=== PATIENT | male | born 1950 | race Caucasian/White ===

== ENCOUNTER 2024-01-31 15:36 | Inpatient (IN) | payer BC, SELFPAY ==
[2024-01-31] VITALS (13 sets, daily range): BP systolic 110–161; BP diastolic 51–92; BMI 31.8; BMI 32.3
--- NOTE | 2024-01-31 09:21 | ED.GENMED ---
History of Present Illness
General
Chief Complaint: Abdominal Symptoms
Time Seen by Provider: 01/31/24 09:14
History of Present Illness
History of Present Illness:
HPI: The patient is a very poor historian therefore I spoke to EMS for history. The patient comes in from a mobile home near [facility]. He was just at [facility] for rehab after admission to [facility]. I then called
the gwkqbkoh-sj-psp eLatha, for history. Son is truck packer. 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 Then at [facility] then to rehab could not keep him there due to insurance - DIL says
'has been throwing up all weekend, extremely stubborn, type I diabetes, was running out of medications and could not tolerate his pills as he would just vomit immediately afterwards'. Urinary incontinence. [facility] [place] [phone] ([facility]
[place]) is 'someone that may help' - I left message.
EXAM:
GENERAL: Appears in no distress but overall appears generally weak and debilitated
HEENT: There is a large ulcerative mass from the angle of the right mandible
CARDIOVASCULAR: Regular rate and rhythm
PULMONARY: No respiratory distress, breathing is nonlabored, equal and clear breath sounds
ABDOMEN: Soft and nontender with no peritoneal signs
NEUROLOGIC: The patient has evidence of dementia, not oriented to month or place, strength is equal in all extremities
EXTREMITIES: Moves all extremities equally, no tenderness, no edema
PYSCHIATRIC: Very limited historian, poor insight and judgment
TIME OF INITIAL ENCOUNTER: 9:20 AM
NUMBER AND COMPLEXITY OF PROBLEMS ADDRESSED AT THE ENCOUNTER
� Chronic conditions affecting care: Stage IV 'cancer of jaw and throat', dementia, diabetes, CAD
� Acute Exacerbation and/or Progression of Chronic Illness: This is an acute problem
� Differential Diagnosis includes: Complication of diabetes, progression of cancer, worsening dementia, dehydration
AMOUNT AND/OR COMPLEXITY OF DATA TO BE REVIEWED AND ANALYZED
� I performed an independent evaluation of and my interpretation is:
EKG: Sinus 106, left bundle branch block, left axis deviation
CT: CT imaging personally reviewed and I agree with radiologist interpretation that he does have very significantly distended stomach with at least questionable gastric outlet obstruction
X-rays: Chest x-ray suggests
Laboratory Studies: White count 21.8, hemoglobin 10.8, sodium 128, renal function normal, alcohol undetected
Other:
� Review of other/old records: No old records here since 2015; I reviewed some notes from [facility] including lab work that shows a normal white count when he was there
� Clinical information was obtained by an independent historian: I spoke to the [id number]-[id number]-nul over the phone�see above
� Prescriptions/Medications Considered but not given:
� Further testing considered but not performed:
RISK OF COMPLICATIONS AND/OR MORBIDITY OR MORTALITY OF PATIENT MANAGEMENT
� Social determinants of health affecting care: Currently staying with apqckuyx-lx-hgb however she cannot care for him at their mobile home
� Discussion with other providers: I spoke to Shea Hanson [phone] at [facility] who states that the patient has not been evaluated at [facility] yet but she is able to try to look at old records and will fax us more information.
Hospitalist for admission at about 11:30 AM.
� Escalation of care including admission/observation vs risk of discharge considered: I spoke to EMS upon arrival. The patient has evidence of dementia is a very limited historian. He thinks he is here 'because I relapsed'. He
has a history of alcoholism. He does not appear intoxicated. CT imaging shows concerns for possible gastric outlet obstruction�will plan NG tube. NG tube was placed and did remove about 2 L.
Past History
Past History
ED Past Medical History: CAD, HTN, Hypercholesterolemia and NIDDM
Social History
Tobacco: Non-smoker
Alcohol: Occasional
Drug: None
Personal: Other (Noncontributory)
Living: with family
Employment: Retired
Family History
Family History: Hypertension
Phy Exam
Physical Exam
Physical Exam:
See HPI
Course
Orders/Labs/Results
Orders:
Orders
01/31/24 09:20
Electrocardiogram (*1) Urgent
Reason for Study: Tachycardia
EKG- Treatment ONCE
01/31/24 09:22
0.9% Sodium Chloride 1000 ml [Nss] 1,000 ml IV BOLUS
01/31/24 09:48
Add On- LAB Urgent
Tests Added?: alcohol
CT Abd/pelvis W Iv Cont Urgent
Comment:
Reason For Exam: jaw malignancy intractable vomiting
01/31/24 09:49
Alcohol Urgent
Complete Blood Count/With Diff Urgent
Comprehensive Metabolic Panel Urgent
Lactic Acid Q4H
Comment: CANCEL 2nd LACTIC ACID IF 1st LACTIC ACID IS LESS THAN 2
Lipase Urgent
Blood Culture Q30M
YENNY Source: Blood/Venous
Specimen Description:
Blood Culture Q30M
YENNY Source: Blood/Venous
Specimen Description:
01/31/24 10:10
Wound/Abscess/Other Culture Urgent
YENNY Source: Face
Specimen Description: Right
Date Specimen was Collected: 01/31/24
Time Specimen was Collected: 10:05
01/31/24 10:16
Case Management Consult ONCE
Case Management Consult: Discharge Planning
01/31/24 10:57
Urinalysis Reflex To Culture Urgent
CR Chest - 2 Views Urgent
Comment:
Reason For Exam: leukocytosis
01/31/24 11:17
Cefepime HCl [Maxipime] 1,000 mg IV NOW STA
01/31/24 11:23
NG Tube [GI tube insertion- Treatment] ONCE
01/31/24 12:00
VANCOMYCIN Pharmacy to Dose [VANCOCIN Pharmacy to Dose] 1 each Pharmacy To Prepare [Call Pharmacy To Prepare] 0 ml IV PER PROTOCOL
01/31/24 13:30
Lactic Acid Q4H
Comment: CANCEL 2nd LACTIC ACID IF 1st LACTIC ACID IS LESS THAN 2
Abnormal Lab Results
01/31/24
09:49
WBC 21.8 H 10^3/uL
(4.8-10.8)
RBC 3.67 L 10^6/uL
(4.70-6.10)
Hgb 10.8 L g/dL
(13.0-18.0)
Hct 31.3 L %
(39.0-52.0)
RDW 15.4 H %
(11.5-14.5)
MPV 10.7 H fL
(7.4-10.4)
Abs Immat Gran (auto) 0.2 H 10^3/uL
(0-0.05)
Absolute Neuts (auto) 16.7 H 10^3/uL
(1.4-6.5)
Absolute Monos (auto) 3.4 H 10^3/uL
(0.1-0.6)
Immature Gran % 1.0 H %
(0-0.5)
Neutrophils % 76.8 H %
(42.2-75.2)
Lymphocytes % 6.6 L %
(20.5-51.1)
Monocytes % 15.4 H %
(1.7-9.3)
Sodium 128 L mmol/L
(135-145)
Chloride 94 L mmol/L
(98-107)
Creatinine 0.6 L mg/dL
(0.7-1.3)
Glucose 151 H mg/dl
(70-99)
Lactic Acid 2.5 H mmol/L
(0.7-2.0)
Total Protein 5.4 L g/dl
(6.3-8.2)
Albumin 3.1 L g/dl
(3.5-5.0)
01/31/24 09:49
01/31/24 09:49
Vital Signs
Initial and Last Documented VS:
Initial Vital Signs
Temp Pulse Resp BP Pulse Ox
99.1 F 108 23 120/65 97
01/31/24 09:20 01/31/24 09:20 01/31/24 09:20 01/31/24 09:20 01/31/24 09:20
Last Documented Vital Signs
Temp Pulse Resp BP Pulse Ox
99.1 F 88 21 142/62 97
01/31/24 09:20 01/31/24 11:00 01/31/24 11:00 01/31/24 11:00 01/31/24 10:15
*Critical Care Note
Total Time (30-74mins, 75-104mins- exclusive of procedures): Not Applicable
ED Attending Note
-
Portions of this chart may have been created with voice recognition software.� Occasional wrong word or��sound alike� substitutions may have occurred due to the inherent limitations of voice recognition software.
Discharge Plan
Departure
Patient Disposition: Admit
Date of Disposition: 01/31/24
Time of Disposition: 11:26
Presentation/result/management discussed w/ accepting MD/DO: Hospitalist
Discharge Problem:
Acute distention of stomach
Prescriptions:
No Action
metformin 500 mg Tablet
1,000 mg PO BID
atorvastatin 80 mg Tablet
80 mg PO QPM
metoprolol succinate 100 mg Tablet Extended Release 24 Hr
100 mg PO DAILY
thiamine HCl (vitamin B1) 100 mg Tablet
100 mg PO DAILY
tamsulosin 0.4 mg Capsule
0.4 mg PO QPM
pantoprazole 40 mg Tablet,Delayed Release (Dr/Ec)
40 mg PO BID
losartan 25 mg Tablet
25 mg PO DAILY
niacin 100 mg Tablet
100 mg PO DAILY
folic acid 1 mg Tablet
1 mg PO DAILY
ondansetron 4 mg Tablet,Disintegrating
4 mg PO Q8H PRN (Reason: nausea/vomiting)
cholecalciferol (vitamin D3) 25 mcg (1,000 unit) Tablet
25 mcg PO DAILY
Januvia 100 mg Tablet
100 mg PO DAILY
Tab-A-Kaya Multivitamin w-iron 15 mg iron- 400 mcg Tablet
1 tab PO DAILY
insulin glargine-yfgn 100 unit/mL Solution
20 unit SC HS
Referrals:
Serena Valenzuela MD [Family Provider] -
Interventions
Interventions:
*Risk Screen - Suicide Last Done: 01/31/24 09:20
*General Assessment Last Done: 01/31/24 09:20
*Neglect/Abuse Screening Last Done: 01/31/24 09:20
HL-Ftupig-Vxzqhbiypq Assessment Last Done: 01/31/24 09:59
Discharge Date and Time
Print Language: BENINESE
[2024-01-31] MEDS: NSS 1000 IV ×2 (09:48→18:22)
[2024-01-31 10:01] LABS: % Basophils 0.2 % (0-2); % Lymphocytes 6.6 % (20.5-51.1); % Monocytes 15.4 % (1.7-9.3); % Neutrophils 76.8 % (42.2-75.2); Absolute Basophils 0.1 10^3/uL (0-0.2); Absolute Immature Granulocytes 0.2 10^3/uL (0-0.05); Absolute Lymphocytes 1.4 10^3/uL (1.2-3.4); Absolute Monocytes 3.4 10^3/uL (0.1-0.6); Absolute Neutrophils 16.7 10^3/uL (1.4-6.5); Hematocrit 31.3 % (39.0-52.0); Hemoglobin 10.8 g/dL (13.0-18.0); Mean Corp Hgb Conc. 34.5 g/dL (33.0-37.0); Mean Corpuscular Hgb 29.4 pg (27.0-31.0); Mean Corpuscular Volume 85.3 fL (80.0-94.0); Mean Platelet Volume 10.7 fL (7.4-10.4); Nucleated Red Blood Cells % 0 % (-); Platelet Count 185 10^3/uL (130-400); Red Blood Cell Count 3.67 10^6/uL (4.70-6.10); Red Cell Dist. Width 15.4 % (11.5-14.5); White Blood Cell Count 21.8 10^3/uL (4.8-10.8)
[2024-01-31 10:11] LABS: Lactic Acid 2.5 mmol/L (0.7-2.0)
[2024-01-31 10:12] LABS: ALT (SGPT) 16 U/L (0-50); AST (SGOT) 27 U/L (17-59); Albumin 3.1 g/dl (3.5-5.0); Alkaline Phosphatase 82 U/L (38-126); Blood Urea Nitrogen 17 mg/dl (9-20); Carbon Dioxide 22 mmol/L (22-30); Chloride 94 mmol/L (98-107); Glucose 151 mg/dl (70-99); Lipase 57 U/L (23-300); Potassium 3.6 mmol/L (3.5-5.1); Sodium 128 mmol/L (135-145); Total Protein 5.4 g/dl (6.3-8.2); eGFR > 60.00
[2024-01-31 10:31] LABS: Alcohol None Detected
--- NOTE | 2024-01-31 11:03 | CM ---
CM was consulted regarding discharge planning. CM spoke with patient's daughter in law who stated that patient was living independently up until recently in [place], [place]. Patient was brought to a local hospital, [facility], after being found in the snow
and was treated for frostbite. He was found to have a head/neck malignancy. Patient was discharged to a [facility]. Patient was then hospitalized again at [facility]. He was then sent to an unknown rehab for two days where his
'insurance ran out'. Patient was discharged home with family over weekend.
Daughter in law reports that patient is currently bedbound and incontinent of urine and stool. Patient is not participating in ADL's. Patient's daughter further reports that patient cannot tolerate PO and has been vomiting his pills.
Daughter in law further reports that they have allowed him to drink beer while he is with them. She reports that he is a chronic alcoholic. She reports he has dementia and a history of PTSD due to his service in the . Patient does have an
appointment at the [facility] this coming Tuesday to plan for treatment of his cancer.
CM advised daughter that placement is complicated by his coming cancer treatment. Daughter understands, but still feels they cannot provide the care that he needs in her home.
ANA updated ED physician. Plan for admission.
[2024-01-31] MEDS: MAXIPIME 1000 MG IV ×2 (11:23→20:45)
--- NOTE | 2024-01-31 14:33 | HPS.HSE ---
Family Physician
-
Family Physician: Serena Valenzuela MD
Chief Complaint
-
intractable vomiting
History of Present Illness
73-year-old male from home with intractable vomiting. Patient reports he has had vomiting since December with weight loss of 28 pounds. He has had a large right wound to his right mandible into his neck for approximately 1 year he states he
thought it would go away. He does not remember his 17-day admission() to [facility] being told he had cancer or his current recent rehab admission. He reports for the past 3 to 4 days he has had intractable vomiting and has
been unable to hold down any of his medications he did have a large bowel movement brown pudding-like on Tuesday 2 days ago. The ER spoke with patient's icfcapwt-lp-esd Leatha who states he has stage IV cancer of the jaw and throat was admitted to
[facility] in [place] and [facility] He was set up with [facility] to begin visits on 01/28/2024. He believes the nurse came out today and called the ambulance. Other past medical history includes stage IV CA
jaw/throat Dx December 2023 [facility] , squamous cell CA scalp and neck, GI bleed, alcohol abuse, chronic ambulatory dysfunction, chronic memory impairment, urinary incontinence, CAD,/[place] cardiac stent 1993, HTN, HLD, DM2, anemia.
Medical History
Past Medical History
Past Medical History: Reports Other
Additional Past Medical History:
stage IV CA jaw/throat had biopsy on 01/06/2024 [facility]
Squamous cell CA scalp and neck
GI bleed
Alcohol abuse
Chronic memory impairment per patient
urinary incontinence,
CAD
HTN
HLD
DM2
anemia
Chronic memory impairment per patient
Chronic ambulatory dysfunction
Past Surgical History: Reports Other
Additional Past Surgical History:
Tonsillectomy
Cardiac stent x 1 [facility] 1993
Biopsy right jaw neck wound January 06, 2024 [facility]
Social History
Tobacco: Non-smoker
Alcohol: Daily (2-3 beers last drink 4 days ago prior 8 beers a day December 2023)
Drug: None
Personal: Single
Living: Alone
Employment: Retired
Family History
Family History: Other (Mother CVA father [place])
Allergies / Home Medications
Allergies reflects when Allergies were last updated in [employer].
Home Medications with original date entered in [employer]
Allergy/Medication List:
Allergies
Allergy/AdvReac Type Severity Reaction Status Date / Time
gallopamil Allergy Unknown Unknown Verified 01/31/24 09:29
lisinopril Allergy Unknown Unknown Verified 01/31/24 09:29
Home Medications
atorvastatin 80 mg tablet 80 mg PO QPM High Cholesterol 01/31/24
cholecalciferol (vitamin D3) 25 mcg (1,000 unit) tablet 25 mcg PO DAILY Supplement 01/31/24
folic acid 1 mg tablet 1 mg PO DAILY Supplement 01/31/24
insulin glargine-yfgn 100 unit/mL subcutaneous solution 20 unit SC HS Diabetes 01/31/24
losartan 25 mg tablet 25 mg PO DAILY Blood Pressure 01/31/24
metformin 500 mg tablet 1,000 mg PO BID Diabetes 01/31/24
metoprolol succinate 100 mg tablet,extended release 24 hr 100 mg PO DAILY Blood Pressure 01/31/24
multivitamin-iron sulfate 15 mg-folic acid 400 mcg tablet (Tab-A-Kaya Multivitamin w-iron) 1 tab PO DAILY Supplement 01/31/24
niacin 100 mg tablet 100 mg PO DAILY Supplement 01/31/24
ondansetron 4 mg disintegrating tablet 4 mg PO Q8H PRN nausea/vomiting 01/31/24
pantoprazole 40 mg tablet,delayed release 40 mg PO BID Gastrointestinal Issue 01/31/24
sitagliptin phosphate 100 mg tablet (Januvia) 100 mg PO DAILY Diabetes 01/31/24
tamsulosin 0.4 mg capsule 0.4 mg PO QPM Urinary Issue 01/31/24
thiamine HCl (vitamin B1) 100 mg tablet 100 mg PO DAILY Supplement 01/31/24
Review of Systems
-
History Source: Patient and Other (Per ER record from [id number])
Constitutional: Reports Weight Loss (28 pounds 1 month); Denies Fever
EENT: Reports Other (Large open ulcerated wound to right mandible into right neck x 1 year per patient); Denies Sore Throat or Runny Nose
Respiratory: Denies Cough or Trouble Breathing
Cardiac: Denies Chest Pain, Diaphoresis, Palpitations or Syncope
Abdomen/GI: Reports Nausea and Vomiting; Denies Abdominal Pain, Diarrhea, Constipated, Bloody Stools or Black Stools
: Reports Incontinence (Chronic urinary); Denies Dysuria, Frequency, Flank Pain or Difficulty Voiding
Musculoskeletal: Denies Joint Pain or Edema
Skin: Denies Itching or Rash
Neurological: Denies Dizzy, Headache or Weakness
Endocrine: Reports No Symptoms
Hematologic/Lymphatic: Reports No Symptoms
Psych: Reports Calm
Physical Exam
Vital Signs
Vital Signs
Temp Pulse Resp BP Pulse Ox
99.1 F 100 22 125/63 95
01/31/24 09:20 01/31/24 13:00 01/31/24 13:00 01/31/24 13:00 01/31/24 12:15
Physical Exam
General: Comfortable, Conversant, Obese and Other (Poor memory recall oriented to name and place only does not recall 19-day admission and rehab visit); No Fever or Chills
HEENT: NormoCephalic, Anicteric, PERRLA, No Ptosis and Other (Large open wound entire right mandible extending into neck)
Respiratory: Clear; No Wheezes, Rales or Rhonchi
Cardiac: S1/S2 and Tachycardia; No Murmur, Rub, Gallop or Peripheral Edema
Breast: Deferred by me
GI: Soft, Non Tender, Non Distended, Normal Bowel Sounds, No Hepatosplenomegaly and Other (NG tube draining dark green bile)
Rectal: Deferred by Provider
Genito-urinary: Deferred by me
Musculoskeletal: No Clubbing, No Cyanosis and No Edema
Skin: Warm and Dry; No Rash
Neuro: Awake, Alert and Oriented (To name, current place but not any recent events or past medical history); No Slurred Speech, Facial Droop or Tremors
Psych: Calm
Laboratory Results
-
01/31/24 09:49
01/31/24 09:49
Laboratory Results
Lactic Acid 2.5 mmol/L (0.7-2.0) H 01/31/24 09:49
Total Bilirubin 1.0 mg/dl (0.2-1.3) 01/31/24 09:49
AST 27 U/L (17-59) 01/31/24 09:49
ALT 16 U/L (0-50) 01/31/24 09:49
Alkaline Phosphatase 82 U/L (38-126) 01/31/24 09:49
Lipase 57 U/L (23-300) 01/31/24 09:49
Data Reviewed
-
CT Scan: Report Reviewed by me
Lab Data: Labs Reviewed by me
Impression/Plan
-
Impression/plan:
Admit to telemetry
#Sepsis secondary to left lower lobe PNA concern for aspiration pneumonia given vomiting
WBC 21.8(was 7.7 on 01/12/2024), 99 1, HR 100, 125/63
-Blood cultures x 2, check UA ADOPTION MANAGER
-IV cefepime, IV Flagyl, IV vancomycin
-Consult ID
-Check Pro-Sandip, follow CBC, CMP
-PT/OT/case management eval
CXR: Tree-in-bud nodules in the left lung base
CT abdomen pelvis with IV contrast:
1. Mild infectious tree-in-bud nodules in the lingula and left lower lobe
2. Moderate fluid distention of the stomach may be related to gastroparesis or gastric outlet obstruction
EKG sinus tach 106 bpm, LBBB, QTc 536 MS
#Intractable vomiting likely secondary to sepsis versus gastroparesis/gastric outlet obstruction
-N.p.o.
-NG tube
-IV NSS 60 cc an hour
-IV PPI
-IV Zofran as needed
-Consult GI
#Stage IV CA jaw/throat ?
#Hx squamous cell CA scalp/neck
Had biopsy on 01/06/2024 at [facility] will get records for surgical pathology
[facility]-contact number Margarita Pfeiffer [phone]
-Obtain old records from [facility] including surgical path/consults/admission note
-Consult Oncology
#Alcohol abuse
Drinks 2-3 beers a day last drink 4 days ago(01/28/24) prior 8 beers daily until December 2023
MSAs screen with protocol
IV thiamine, IV folate
#Hyponatremia hypovolemic
NA 128 follow bmp
#Chronic memory impairment per patient
#Chronic ambulatory dysfunction
PT/OT/case management eval
#Normocytic anemia
Hgb 10.8, MCV 85.3
Hold folic acid
#DM2
Accu-Cheks with SSI, check HgbA1c
-Hold Januvia, metformin at 1000 g twice daily, insulin glargine 20 units at bedtime due to current vomiting
#GERD
#Hx GI bleed
-IV PPI 40 mg daily, [facility] 40 mg p.o. twice daily
#HTN benign
Hold metoprolol succinate 100 mg daily
IV Lopressor 5 mg every 6 hours as needed SBP>110
-Hold losartan
#CAD/cardiac stent x 1 [facility] 1993
Hold losartan/p.o. beta-monica/statin
#Chronic urinary incontinence
-Continue Flomax 0.4 mg every afternoon
#Obesity due to excess calorie consumption�BMI 31.8 kg
Due to current likely stage IV head and neck cancer weight loss at current time not recommended
DVT prophylaxis
Subcu Lovenox
DNR per patient
Wwxoqckk-wu-hym Leatha [phone] contact
[2024-01-31] MEDS: VANCOCIN 540 MG IV (14:59)
--- NOTE | 2024-01-31 15:39 | W.PN.UPDATE ---
Addendum entered and electronically signed by Peggy Olmstead MD 01/31/24 15:51:
Continue Lantus as 5 units at bedtime, instead of 10 units as stated below
Original Note:
Update Note
Progress Note Update
I saw and examined the patient.
The OVERLOCK COLLAR SETTER's note was reviewed and I agree with the note.
Comment:
HPI: 73-year-old male with PMH stage IV jaw cancer, squamous cell cancer of the scalp and neck, GI bleed, alcohol abuse, chronic ambulatory dysfunction, chronic memory impairment, urinary incontinence, CAD/PA with cardiac stent 1993, HTN, HLD, DM2,
anemia; p/w nausea and intractable vomiting.
He was recently admitted to [facility] in Dec which he has no recollection of.
ER physician spoke with patient's itluyjck-og-jwu Leatha who stated that pt has stage IV cancer of the jaw and throat and [facility] [place] [facility]
He was set up with [facility] care, whom likely called the ambulance today.
CXR: Tree-in-bud nodules in the left lung base
CT abdomen pelvis with IV contrast:
1. Mild infectious tree-in-bud nodules in the lingula and left lower lobe
2. Moderate fluid distention of the stomach may be related to gastroparesis or gastric outlet obstruction
A/P:
# Likely Sepsis POA secondary to left lower lobe PNA, concern for aspiration pneumonia given vomiting
WBC 21.8 on admission (was 7.7 on 01/12/2024)
Follow Blood cultures x 2,
Check Pro-Sandip
check UA although less likely
Cont IV cefepime, vancomycin and add Flagyl
Consult ID
# Intractable vomiting likely secondary to gastroparesis/gastric outlet obstruction
NG tube placed in the ED
Cont NPO with IVF support
IV PPI
IV Zofran as needed
Consult GI
# Stage IV R jaw cancer
# Hx squamous cell CA scalp/neck
Had biopsy on 01/06/2024 at [facility], will get records for surgical pathology
[facility]-contact number Margarita Pfeiffer [phone]
Obtain old records from [facility] including surgical path/consults/admission note
Consult Oncology
# Alcohol abuse
Drinks 2-3 beers a day, last drink 4 days [employer] (01/28/24)
Cont MSAS protocol
IV thiamine, IV folate
# Hyponatremia hypovolemic
Follow sodium level with IVF
# Chronic memory impairment
# Chronic ambulatory dysfunction
PT/OT eval
# Normocytic anemia
Hgb 10.8, MCV 85.3
# DM2
SSI
check HgbA1c
Hold Januvia, metformin at 1000 mg twice daily,
Cont half dose [employer] insulin glargine at 10 units HS ([employer]IE[employer] at 20 units HS)
# GERD
# Hx GI bleed
IV PPI 40 mg daily, [employer] 40 mg p.o. twice daily
# HTN benign
Hold metoprolol succinate 100 mg daily
IV Lopressor 5 mg every 6 hours as needed SBP >110
Hold losartan
# CAD/cardiac stent x 1 [facility] 1993
Hold losartan/p.o. beta-monica/statin
# Chronic urinary incontinence
Continue Flomax 0.4 mg every afternoon
DVT prophylaxis: Subcu Lovenox
[2024-01-31 15:40] LABS: Lactic Acid 1.1 mmol/L (0.7-2.0)
[2024-01-31] MEDS: PROTONIX IV 40 MG IV (15:56)
--- NOTE | 2024-01-31 16:13 | CON.GI ---
Addendum entered and electronically signed by Debi Bucio MD 01/31/24 18:11:
I saw and examined the patient.
The STONE CRUSHER OPERATOR or PA's note was reviewed and I agree with the note.
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
Patient poor historian (told me he does not have appt at [place]; told me he did have EGD may years ago).
Will need eventual EGD once Na improved to over 130 and once output from NGT decreases and improves from PNA standpoint (concern about aspiration PNA which may explain leukocytosis - ID has been consulted).
r/a/b reviewed with pt of EGD inc but not limited to bleeding, infection, perforation.
Recommend intermittent suction of NGT.
Question prognosis with current malignancy and goals of care, onc has been consulted.
Original Note:
Consultation
-
Date/Time Consultation Requested: 01/31/24 1530
Date/Time Consultation Performed: 01/31/24 1615
Requesting Provider: ANDRES Bullock
Performing Provider: ANDRES Henderson, Niurka Bucio MD
Reason for Consultation: gastric distention
Medical History
Chief Complaint / HPI
Chief Complaint: nausea/vomiting
History of Present Illness:
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 He now presents with nausea/vomiting over weekend with
intolerance of medications. On admission CT A/p with Moderate fluid distention of the stomach, which may be related to gastroparesis or gastric outlet obstruction. Some apparent narrowing at the level of the gastric outlet, although could be
related to peristalsis and considered nonspecific by CT. Also noted mild infectious vs inflammatory nodule in lungs. Labs notable for WBC 21,800, Na 128. In ER NGT was placed with 3200ml removal on placement of brownish fluid.
Pt poor historian per admitting hospitalist team pt had hx left sided squamous cell CA of neck and scalp then recent biopsy right side ulcerated lesion and due follow up this week at [facility] to review for treatment. Pt denies difficulty with
swallowing but admits to intractable nausea/vomiting non bloody emesis last few days and possible intermittent since . He has also had 28 lbs wt loss. Pt also admits to to diarrhea but non specific amount but denies abdominal pain, blood or
black in stools. Hx colonoscopy years ago with hx polyps. Did not recall EGD.
Past Medical History
Past Medical History: CAD, Cancer (squamous cell CA left sided right sided ulcerated mass with biopsy 01/07/24 ), HTN, Hypercholesterolemia, NIDDM and Other (anemia, GI bleed, syncope, ? dementia, pulm nodule, athrosclerosis, LBBB, prior tobacco use,
dysphagia, salivary gland abscess, BPH, urinary retention )
Social History
Tobacco: Non-Smoker
Alcohol: Daily (8 beers per day then cut back til 4 days ago)
Drug: None
Living: With Family
Employment: Retired
Family History
Family History: Other (denies family hx colon CA or polyps)
Allergies / Home Medications
Allergy/AdvReac Type Severity Reaction Status Date / Time
gallopamil Allergy Unknown Unknown Verified 01/31/24 09:29
lisinopril Allergy Unknown Unknown Verified 01/31/24 09:29
�Medication �Instructions �Recorded
atorvastatin 80 mg tablet 80 mg PO QPM High Cholesterol 01/31/24
cholecalciferol (vitamin D3) 25 25 mcg PO DAILY Supplement 01/31/24
mcg (1,000 unit) tablet
folic acid 1 mg tablet 1 mg PO DAILY Supplement 01/31/24
insulin glargine-yfgn 100 unit/mL 20 unit SC HS Diabetes 01/31/24
subcutaneous solution
losartan 25 mg tablet 25 mg PO DAILY Blood Pressure 01/31/24
metformin 500 mg tablet 1,000 mg PO BID Diabetes 01/31/24
metoprolol succinate 100 mg 100 mg PO DAILY Blood Pressure 01/31/24
tablet,extended release 24 hr
multivitamin-iron sulfate 15 1 tab PO DAILY Supplement 01/31/24
mg-folic acid 400 mcg tablet
(Tab-A-Kaya Multivitamin w-iron)
niacin 100 mg tablet 100 mg PO DAILY Supplement 01/31/24
ondansetron 4 mg disintegrating 4 mg PO Q8H PRN nausea/vomiting 01/31/24
tablet
pantoprazole 40 mg tablet,delayed 40 mg PO BID Gastrointestinal Issue 01/31/24
release
sitagliptin phosphate 100 mg 100 mg PO DAILY Diabetes 01/31/24
tablet (Januvia)
tamsulosin 0.4 mg capsule 0.4 mg PO QPM Urinary Issue 01/31/24
thiamine HCl (vitamin B1) 100 mg 100 mg PO DAILY Supplement 01/31/24
tablet
Review of Systems
-
History Source: Patient
Constitutional: Reports Weight Loss
EENT: Reports No Symptoms
Respiratory: Reports No Symptoms
Cardiac: Reports No Symptoms
Abdomen/GI: Reports Nausea, Vomiting and Diarrhea
: Reports No Symptoms
Musculoskeletal: Reports No Symptoms
Skin: Reports Other (left facial ulcerated area )
Neurological: Reports Weakness
Endocrine: Reports No Symptoms
Hematologic/Lymphatic: Reports No Symptoms
Vital Signs
Temp Pulse Resp BP Pulse Ox
99.1 F 96 22 146/57 96
01/31/24 09:20 01/31/24 14:30 01/31/24 14:30 01/31/24 14:00 01/31/24 14:30
Physical Exam
Exam
General: Well Developed, Well Nourished and No Apparent Distress
HEENT: Normocephalic and Other (large ulcerated lesion left side of neck)
Respiratory: Clear
Cardiac: Regular Rhythm
GI: Soft, Non Tender, Non Distended and Other (NGT with brownish drainage )
Genito-urinary: No Costovertebral Tender
Musculoskeletal: No Clubbing and No Cyanosis
Skin: Warm
Neuro: Awake, Alert and Other (forgetful)
Psych: Calm
Results
WBC 21.8 10^3/uL (4.8-10.8) H 01/31/24 09:49
Hgb 10.8 g/dL (13.0-18.0) L 01/31/24 09:49
Hct 31.3 % (39.0-52.0) L 01/31/24 09:49
MCV 85.3 fL (80.0-94.0) 01/31/24 09:49
Plt Count 185 10^3/uL (130-400) 01/31/24 09:49
Absolute Neuts (auto) 16.7 10^3/uL (1.4-6.5) H 01/31/24 09:49
Sodium 128 mmol/L (135-145) L 01/31/24 09:49
Potassium 3.6 mmol/L (3.5-5.1) 01/31/24 09:49
Chloride 94 mmol/L (98-107) L 01/31/24 09:49
Carbon Dioxide 22 mmol/L (22-30) 01/31/24 09:49
BUN 17 mg/dl (9-20) 01/31/24 09:49
Creatinine 0.6 mg/dL (0.7-1.3) L 01/31/24 09:49
Calcium 9.0 mg/dl (8.4-10.2) 01/31/24 09:49
Total Bilirubin 1.0 mg/dl (0.2-1.3) 01/31/24 09:49
AST 27 U/L (17-59) 01/31/24 09:49
ALT 16 U/L (0-50) 01/31/24 09:49
Alkaline Phosphatase 82 U/L (38-126) 01/31/24 09:49
Lipase 57 U/L (23-300) 01/31/24 09:49
Diagnostic Image Results:
01/30 CT a/p with IV contrast
1. Moderate fluid distention of the stomach, which may be related to gastroparesis or gastric outlet obstruction. Some apparent narrowing at the level of the gastric outlet, although could be related to peristalsis and considered nonspecific by CT.
If persistent clinical concern, a follow-up endoscopy or a nonemergent upper gastrointestinal fluoroscopic evaluation could be performed.
2. Mild infectious or inflammatory tree-in-bud nodules in the lingula and left lower lobe.
Prior GI Procedures:
EGD: none
Colonoscopy: ? at [facility] years ago
Assessment / Plan
-
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 He now presents with
nausea/vomiting over weekend with intolerance of medications. On admission CT A/p with Moderate fluid distention of the stomach, which may be related to gastroparesis or gastric outlet obstruction. Some apparent narrowing at the level of the
gastric outlet, although could be related to peristalsis and considered nonspecific by CT. Also noted mild infectious vs inflammatory nodule in lungs. Labs notable for WBC 21,800, Na 128. In ER NGT was placed with 3200ml removal on placement of
brownish fluid. pt also with 28 lbs wt loss and diarrhea. Hx colonoscopy years ago with hx polyps. Did not recall EGD. Some limited hx poor historian in exam.
-nausea/vomiting with concern for gastric outlet obstruction on imaging
-hx squamous cell CA left neck and recent bx right neck ulcerated lesion with concern for Jaw/throat CA
-hyponatremia
-leukocytosis
-elevated lactate now improved
-hx ETOH use
other medical problems:
-CAD
-HTN
-hypercholesterolemia
-NIDDM
-LBBB
-BPH
-cognitive impairment
PLAN:
etiology of nausea/vomiting with concern for gastric outlet obstruction vs other
cont NGT for decompression
correct Na
trend WBC's
will review with Dr. Bucio for EGD
requested again record from [facility] as only labs sent
per medical team due this week for follow up at [place] for evaluation
-
-
Thank you for consultation and allowing me to participate in the patient's care. Please call the superintendent concrete mixing plant GI physician during the after hours with any questions or concerns.
--- NOTE | 2024-01-31 17:41 | PTCARENOTE ---
Patient admitted from the ER into room 405-02. Vital signs stable. NGT intact. Connected to low intermittent suction. Educated patient on NPO status. Patient verbalizes understanding. Reviewed use of call caldera, bed and television remote usage.
Patient verbalizes understanding of teaching.
--- NOTE | 2024-01-31 18:11 | W.PN.UPDATE ---
Update Note
Progress Note Update
billing purposes
[2024-01-31] MEDS: THIAMINE INJECTION 200 MG IV ×2 (18:26→23:34)
[2024-01-31] MEDS: FLAGYL 500 MG 100 IV (18:26)
[2024-01-31 18:31] LABS: INR 1.18; PT 14.9 Sec (11.4-14.6)
[2024-01-31 18:32] LABS: APTT 27.5 Sec (23.4-35.0)
[2024-01-31 18:35] LABS: GGTP 18 U/L (15-73); Magnesium 1.5 mg/dl (1.6-2.3); Phosphorus 3.2 mg/dl (2.5-4.5)
[2024-01-31 18:42] LABS: B-Hydroxybutyrate 2.61 mmol/L (0.02-0.27)
[2024-01-31 18:56] LABS: Procalcitonin 0.13 ng/ml (0.0-0.25)
[2024-01-31] MEDS: HEPARIN 5000 UNITS SC (20:44)
[2024-01-31] MEDS: NSS (PRESERVATIVE FREE) IV (20:45)
--- NOTE | 2024-01-31 20:50 | PHA.VAN.IN ---
Assessment
- Assessment
Renal Function: Appears similar to baseline
Concomitant Antimicrobials: FLAGYL, CEFEPIME
- Previous Dosing Experience
Previous Regimen: NONE
AUC Dosing Plan
- Dosing Variables
Dosing Weight (kg): 100.7
Dosing CrCl (ml/min): 100
Vd coefficient (L/kg): 0.6
- Empiric Dosing
Initial / Loading Dose: 2GM
Maintenance Regimen: 1250MG IV Q12H
Estimated AUC (mcg*h/mL): 505
Estimated Peak (mcg*h/mL): 31.8
Estimated Trough (mcg/ml): 12.7
Estimated Half Life (H): 31.8
Pharmacokinetics Vancomycin I
- -
Patient Age: 73
Patient Sex: Male
Vancomycin Day #: 1
Indication: Pulmonary/Respiratory (SEPSIS)
Requesting Provider: QIAN
Height / Weight:
Height 5 ft 9.5 in
Actual Weight 100.698 kg
Pertinent Past Medical History: STAGE IV CA - SCALP/NECK
- Vital Signs / Lab Results
Temp Pulse Resp BP Pulse Ox
98.1 F 92 16 161/79 98
01/31/24 19:44 01/31/24 19:44 01/31/24 19:44 01/31/24 19:44 01/31/24 19:44
Lab Results - Hematology
01/31/24
09:49
WBC 21.8 H
Lab Results - Chemistry
01/31/24
09:49
BUN 17
Creatinine 0.6 L
Albumin 3.1 L
01/31/24 01/31/24
09:49 14:31
Lactic Acid 2.5 H 1.1
Microbiology Results
01/31/24 10:10 Gram Stain - Preliminary
Face - Right
[2024-01-31 21:15] LABS: Glucose - Point of Care 122 mg/dl (70-99)
[2024-01-31] MEDS: LANTUS 0.0500000000000000028 UNITS SC (21:52)
[2024-01-31 21:54] LABS: Urine Albumin Trace (Neg - Trace); Urine Bilirubin 1+ (Negative); Urine Character Clear (Clear); Urine Color Yellow; Urine Glucose Negative (Negative); Urine Ketone 3+ (Negative); Urine Leukocyte Negative (Negative); Urine Nitrite Negative (Negative); Urine Occult Blood Negative (Negative); Urine Urobilinogen Negative (Neg - 1+); Urine pH 6.5 (5.0-9.0)
[2024-01-31 22:02] LABS: Amphetamines Negative (Negative); Barbiturates Negative (Negative); Benzodiazepines Negative (Negative); Buprenorphine Negative (Negative)
[2024-01-31 22:03] LABS: Cocaine Negative (Negative); Marijuana Negative (Negative); Methadone Negative (Negative); Methamphetamines Negative (Negative); Opiates Negative (Negative); Phencyclidine Negative (Negative); Tricyclic Antidepressants Negative (Negative)
[2024-01-31] MEDS: ZOFRAN 4 MG IV (22:30)
[2024-01-31] MEDS: LOPRESSOR 5 MG IV (23:33)
[2024-02-01] VITALS (7 sets, daily range): BP systolic 113–169; BP diastolic 54–83; PULSE 83; O2SAT 96; BMI 32.3; BMI 43.3
[2024-02-01] MEDS: FLAGYL 500 MG 100 IV ×2 (01:37→09:07)
[2024-02-01 03:16] LABS: Glucose - Point of Care 142 mg/dl (70-99)
[2024-02-01] MEDS: MAXIPIME 1000 MG IV (03:42)
[2024-02-01] MEDS: LOPRESSOR 5 MG IV (05:46)
[2024-02-01] MEDS: VANCOCIN 275 MG IV (05:46)
[2024-02-01 06:02] LABS: % Basophils 0.4 % (0-2); % Eosinophils 1.1 % (0-6); % Immature Granulocytes 1.4 % (0-0.5); % Lymphocytes 11.2 % (20.5-51.1); % Monocytes 17.9 % (1.7-9.3); Absolute Basophils 0.1 10^3/uL (0-0.2); Absolute Eosinophils 0.1 10^3/uL (0-0.7); Absolute Immature Granulocytes 0.2 10^3/uL (0-0.05); Absolute Lymphocytes 1.5 10^3/uL (1.2-3.4); Absolute Monocytes 2.3 10^3/uL (0.1-0.6); Absolute Neutrophils 8.8 10^3/uL (1.4-6.5); Hematocrit 29.4 % (39.0-52.0); Hemoglobin 9.7 g/dL (13.0-18.0); Mean Corpuscular Hgb 29.5 pg (27.0-31.0); Mean Corpuscular Volume 89.4 fL (80.0-94.0); Mean Platelet Volume 11.2 fL (7.4-10.4); Nucleated Red Blood Cells % 0 % (-); Platelet Count 160 10^3/uL (130-400); Red Blood Cell Count 3.29 10^6/uL (4.70-6.10); Red Cell Dist. Width 15.6 % (11.5-14.5); White Blood Cell Count 12.9 10^3/uL (4.8-10.8)
[2024-02-01 06:26] LABS: ALT (SGPT) 12 U/L (0-50); AST (SGOT) 18 U/L (17-59); Albumin 2.5 g/dl (3.5-5.0); Alkaline Phosphatase 77 U/L (38-126); Blood Urea Nitrogen 12 mg/dl (9-20); Calcium 8.7 mg/dl (8.4-10.2); Carbon Dioxide 27 mmol/L (22-30); Chloride 96 mmol/L (98-107); Estimated Creatinine Clearance > 125 ml/min; Glucose 131 mg/dl (70-99); Potassium 3.1 mmol/L (3.5-5.1); Sodium 132 mmol/L (135-145); Total Bilirubin 0.5 mg/dl (0.2-1.3); Total Protein 4.6 g/dl (6.3-8.2); eGFR > 60.00
--- NOTE | 2024-02-01 08:29 | CON.ONC ---
Addendum entered and electronically signed by Barry Knott MD 02/01/24 08:55:
Regarding brain MRI, I did not order as I not sure patient will be compliant per my conversation with LEONID Zhang.
There is a potential high risk for alcohol withdrawal. For now that see with the other specialist believe and how he does with fluids and correction of hyponatremia.
Eventually MRI brain should be part of his staging evaluation particularly if his intractable vomiting is not improved.
Overall prognosis guarded as patient is somewhat against receiving medical care, has limited social support network, and we have limited data his previous workup done at other institutions.
Original Note:
Impression
Impression
Unattended St IV H&N Ca -large right mandibular mass that was ignored > 1-year
Intractable nausea and vomiting
Dementia? per DIL
Plan
Plan
CT scan ABD relatively unremarkable. With intracable vomiting he could have EMPLOYMENT SUPERVISOR mets so will get inpt MRI brain.
Patient will need thorough outpatient evaluation including imaging (staging) and radiation. Obtain path from biopsies already done.
Will need to get records from [facility] as apparently he ready had a diagnosis of stage IV head neck cancer already made.
Call to LEONID Zhang (listed as Emerg contact). She does not drive and her (patients son) works as a truck shop supervisor and is only off on Mondays.
Will need case management evaluation and outpatient evaluation with coordination of care assuming patient will be agreeable to chemoTx and radiation.
Patient History
History of Present Illness
CC: Vomiting
HPI:
73-year-old male lives in a mobile home presents with intractable vomiting. Patient reports he has had vomiting since December with weight loss of 28 pounds. He has had a large right mandible ulcerated cancer into his neck for approximately 1 year
he states he thought it would go away. He does not remember his 17-day admission() to [facility] being told he had cancer or his current recent rehab admission. He reports for the past 3 to 4 days he has had intractable
vomiting and has been unable to hold down any of his medications. Patient's [id number] eLatha ([phone]) who states he has stage IV cancer of the jaw and throat was admitted to [facility] in [place] and [facility].
He was set up with [facility] care to begin visits on 01/28/2024. He was scheduled to see the [facility] on Monday 01/29 but canceled the appointment.
Past-Medical/Surgical History
PMH: stage IV CA jaw/throat Dx December 2023 [facility] , squamous cell CA scalp and neck, GI bleed, alcohol abuse, chronic ambulatory dysfunction, chronic memory impairment, urinary incontinence, CAD,/NM cardiac stent 1993, HTN, HLD, DM2,
anemia.
SH:
chronic ETOH beer
Prior smoker
Patient Medication
�Medication �Instructions �Recorded �Confirmed �Last Taken �Type
atorvastatin 80 mg tablet 80 mg PO QPM High Cholesterol 01/31/24 01/31/24 Unknown History
cholecalciferol (vitamin D3) 25 25 mcg PO DAILY Supplement 01/31/24 01/31/24 Unknown History
mcg (1,000 unit) tablet
folic acid 1 mg tablet 1 mg PO DAILY Supplement 01/31/24 01/31/24 Unknown History
insulin glargine-yfgn 100 unit/mL 20 unit SC HS Diabetes 01/31/24 01/31/24 Unknown History
subcutaneous solution
losartan 25 mg tablet 25 mg PO DAILY Blood Pressure 01/31/24 01/31/24 Unknown History
metformin 500 mg tablet 1,000 mg PO BID Diabetes 01/31/24 01/31/24 Unknown History
metoprolol succinate 100 mg 100 mg PO DAILY Blood Pressure 01/31/24 01/31/24 Unknown History
tablet,extended release 24 hr
multivitamin-iron sulfate 15 1 tab PO DAILY Supplement 01/31/24 01/31/24 Unknown History
mg-folic acid 400 mcg tablet
(Tab-A-Kaya Multivitamin w-iron)
niacin 100 mg tablet 100 mg PO DAILY Supplement 01/31/24 01/31/24 Unknown History
ondansetron 4 mg disintegrating 4 mg PO Q8H PRN nausea/vomiting 01/31/24 01/31/24 Unknown History
tablet
pantoprazole 40 mg tablet,delayed 40 mg PO BID Gastrointestinal Issue 01/31/24 01/31/24 Unknown History
release
sitagliptin phosphate 100 mg 100 mg PO DAILY Diabetes 01/31/24 01/31/24 Unknown History
tablet (Januvia)
tamsulosin 0.4 mg capsule 0.4 mg PO QPM Urinary Issue 01/31/24 01/31/24 Unknown History
thiamine HCl (vitamin B1) 100 mg 100 mg PO DAILY Supplement 01/31/24 01/31/24 Unknown History
tablet
Active Medications
Generic Name Dose Route Start Last Admin
Trade Name Freq PRN Reason Stop Dose Admin
Cefepime HCl 1,000 mg 01/31/24 20:00 02/01/24 03:42
Cefepime Hcl 1,000 Mg/11.3 Ml Vial IV 1,000 mg
Q8H STEVE Administration
Folic Acid 1 mg 02/01/24 08:00
Folic Acid 1 Mg Tablet PO 02/29/24 07:59
DAILY STEVE
Heparin Sodium 5,000 units 01/31/24 20:00 01/31/24 20:44
Heparin 5,000 Units/Ml 1 Ml Vial SC 02/28/24 19:59 5,000 units
Q12 STEVE Administration
Sodium Chloride 1,000 mls @ 60 mls/hr 01/31/24 15:15 01/31/24 18:22
Nss IV 1,000 mls
.[id number] STEVE Administration
Metronidazole 100 mls @ 100 mls/hr 01/31/24 18:00 02/01/24 01:37
Flagyl 500 Mg IV 100 mls
Q8H STEVE Administration
Folic Acid 1 mg/ Sodium 50.2 mls @ 200.8 mls/hr 01/31/24 17:17
Chloride IV 02/28/24 17:16
DAILYPRN PRN
if NPO
Insulin Glargine 5 units/ 0.05 mls @ 0 mls/hr 01/31/24 22:00 01/31/24 21:52
Device SC 02/28/24 21:59 0.05 mls
HS STEVE Administration
As Directed
Vancomycin HCl 1,250 mg/ 275 mls @ 183.33 mls/hr 02/01/24 06:00 02/01/24 05:46
Sodium Chloride IV 275 mls
Q12H STEVE Administration
Lorazepam 1 mg 01/31/24 17:17
Lorazepam 1 Mg Tablet PO 02/28/24 17:16
Q2HPRN PRN
MSAS 5-7
Lorazepam 1 mg 01/31/24 17:17
Lorazepam 2 Mg/Ml Vial IV 02/28/24 17:16
Q1HPRN PRN
MSAS 8-11
Lorazepam 2 mg 01/31/24 17:17
Lorazepam 2 Mg/Ml Vial IV 02/28/24 17:16
Q1HPRN PRN
MSAS > 11
Metoprolol Tartrate 5 mg 02/01/24 00:00 02/01/24 05:46
Metoprolol 5 Mg/5 Ml Vial IV 02/29/24 00:00 5 mg
Q6 STEVE Administration
Ondansetron HCl 4 mg 01/31/24 17:17 01/31/24 22:30
Ondansetron 4 Mg/2 Ml Vial IV 02/28/24 17:16 4 mg
Q6HPRN PRN Administration
nausea and vomiting
Pantoprazole Sodium 40 mg 02/01/24 08:00
Pantoprazole Sodium 40 Mg/10 Ml Vial IV 02/29/24 07:59
DAILY STEVE
Sodium Chloride 0 ml 01/31/24 17:17
Sodium Chloride 0.9% (Preservative Free) 10 Ml Vial IV 02/28/24 17:16
PRN PRN
To dilute IV Ativan
Protocol
Sodium Chloride 0 flush 01/31/24 19:00
Sodium Chloride 0.9% (Flush) Syringe IV 02/28/24 18:59
PER PROTOCOL STEVE
Thiamine HCl 200 mg 01/31/24 17:17 01/31/24 23:34
Thiamine (100 Mg/Ml) 2 Ml Vial IV 02/03/24 08:01 200 mg
Q8 STEVE Administration
Thiamine HCl 100 mg 02/03/24 20:00
Thiamine 100 Mg Tablet PO 03/02/24 19:59
BID STEVE
Physical Exam
-
General: No Apparent Distress
HEENT: Other (There is a large ulcerative mass from the angle of the right mandible ~ 10 cm)
Cardiology: S1 and S2
Pulmonary: Clear
GI: Soft
Extremities: No C/C/E
Psych: Calm; Negative Intact Judgement/Insight (Very limited historian, poor insight and judgment)
Labs
Lab Results
WBC 12.9 10^3/uL (4.8-10.8) H 02/01/24 05:16
RBC 3.29 10^6/uL (4.70-6.10) L 02/01/24 05:16
Hgb 9.7 g/dL (13.0-18.0) L 02/01/24 05:16
Hct 29.4 % (39.0-52.0) L 02/01/24 05:16
MCV 89.4 fL (80.0-94.0) 02/01/24 05:16
MCH 29.5 pg (27.0-31.0) 02/01/24 05:16
MCHC 33.0 g/dL (33.0-37.0) 02/01/24 05:16
RDW 15.6 % (11.5-14.5) H 02/01/24 05:16
Plt Count 160 10^3/uL (130-400) 02/01/24 05:16
MPV 11.2 fL (7.4-10.4) H 02/01/24 05:16
Abs Immat Gran (auto) 0.2 10^3/uL (0-0.05) H 02/01/24 05:16
Absolute Neuts (auto) 8.8 10^3/uL (1.4-6.5) H 02/01/24 05:16
Absolute Lymphs (auto) 1.5 10^3/uL (1.2-3.4) 02/01/24 05:16
Absolute Monos (auto) 2.3 10^3/uL (0.1-0.6) H 02/01/24 05:16
Absolute Eos (auto) 0.1 10^3/uL (0-0.7) 02/01/24 05:16
Absolute Basos (auto) 0.1 10^3/uL (0-0.2) 02/01/24 05:16
Immature Gran % 1.4 % (0-0.5) H 02/01/24 05:16
Neutrophils % 68.0 % (42.2-75.2) 02/01/24 05:16
Lymphocytes % 11.2 % (20.5-51.1) L 02/01/24 05:16
Monocytes % 17.9 % (1.7-9.3) H 02/01/24 05:16
Eosinophils % 1.1 % (0-6) 02/01/24 05:16
Basophils % 0.4 % (0-2) 02/01/24 05:16
Creatinine 0.5 mg/dL (0.7-1.3) L 02/01/24 05:16
Vital Signs
Vital Signs
Temp Pulse Resp BP Pulse Ox
97.7 F 84 20 151/69 98
02/01/24 07:18 02/01/24 07:18 02/01/24 07:18 02/01/24 05:46 02/01/24 07:18
--- NOTE | 2024-02-01 08:57 | PHA.VAN.FU ---
Vancomycin Assessment / Plan
- Assessment
Renal Function: Stable
WBC's are: Trending Down
In the past 24 hrs, patient has been: Afebrile
Concomitant Antimicrobials: cefepime, metronidazole
- Dosing Plan
Adjust Regimen to: Vanc 1500mg Q12H starting at 1800
New Regimen Predicts: AUC (500), Peak (34), Trough (11)
- Monitoring Plan
No level(s) ordered at this time: consider levels in next few days
MRSA Screen: Ordered per protocol
- Follow Up
Pharmacy will continue to follow.
Vancomycin Follow UP
- -
Patient Age: 73
Patient Sex: Male
Vancomycin Day #: 2
Indication: Pulmonary/Respiratory
Requesting Provider: Dilcia Schmidt
Pertinent Antimicrobial Allergies:
no pertinent antibiotic allergies
Height / Weight:
Height 5 ft 9.5 in
Actual Weight 100.471 kg
Pertinent Past Medical History: Stage IV head & neck cancer
- Vital Signs / Lab Results
Temp Pulse Resp BP Pulse Ox
97.7 F 84 20 151/69 98
02/01/24 07:18 02/01/24 07:18 02/01/24 07:18 02/01/24 05:46 02/01/24 07:18
Lab Results - Hematology
01/31/24 02/01/24
09:49 05:16
WBC 21.8 H 12.9 H
Lab Results - Chemistry
01/31/24 02/01/24
09:49 05:16
BUN 17 12
Creatinine 0.6 L 0.5 L
Estimated Creat Clear > 125
Albumin 3.1 L 2.5 L
01/31/24 01/31/24
09:49 14:31
Lactic Acid 2.5 H 1.1
Lab Results - Urine
01/31/24 01/31/24
21:36 21:37
Urine Nitrite Cancelled
Urine Nitrite (Reflex) Negative
Ur Leukocyte Esterase Cancelled
Leukocyte Esterase Rfl Negative
Microbiology Results
01/31/24 10:10 Gram Stain - Preliminary
Face - Right
[2024-02-01] MEDS: NSS 1000 IV ×2 (09:02→23:51)
[2024-02-01] MEDS: PROTONIX IV 40 MG IV (09:03)
[2024-02-01] MEDS: THIAMINE INJECTION 200 MG IV ×3 (09:03→23:44)
[2024-02-01] MEDS: NSS (PRESERVATIVE FREE) 10 ML IV (09:03)
[2024-02-01] MEDS: HEPARIN 5000 UNITS SC ×2 (09:04→20:50)
[2024-02-01] MEDS: FOLVITE PO (09:08)
--- NOTE | 2024-02-01 09:18 | W.PN.HOSP.TC ---
Today's Communication/Plan
-
see A/P
Assessment / Plan
Assessment / Plan
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
anemia; p/w nausea and intractable vomiting.
He was recently admitted to [facility] in Dec which he has no recollection of.
ER physician spoke with patient's [id number] Leatha who stated that pt has stage IV cancer of the jaw and throat and was [facility] [place] and DC'd to [facility].
He was set up with [facility] care, whom likely called the ambulance today.
CXR: Tree-in-bud nodules in the left lung base
CT abdomen pelvis with IV contrast:
1. Mild infectious tree-in-bud nodules in the lingula and left lower lobe
2. Moderate fluid distention of the stomach may be related to gastroparesis or gastric outlet obstruction
A/P:
# Aspiration Pneumonitis; aspiration pneumonia ruled out by ID
WBC 21.8 on admission -> 12.9 today (was 7.7 on 01/12/2024)
Blood cultures neg, Procal 0.13, UA not indicative for UTI
Off Abx per ID
# Intractable vomiting likely secondary to gastroparesis/gastric outlet obstruction
NG tube placed in the ED
Cont NPO with IVF support
IV PPI
IV Zofran as needed
GI on board, plan for EGD
# non-sustained VT noted on tele, asymptomatic, ?related to hypoK and hypoMag
# CAD/cardiac stent x 1 [facility] 1993
check formal EKG
Check echo
Trend trop
Card on board
Resume TV PRODUCTION ASSISTANT statin,
resume TV PRODUCTION ASSISTANT losartan/Toprol at decreased doses when able to take PO
Replete lytes
# Hypokalemia
# Hypomagnesemia
replete lytes
# stage IV H&N cancer- large right mandibular mass that was ignored > 1-year
# Hx squamous cell CA scalp/neck
Had biopsy on 01/06/2024 at [facility], will get records for surgical pathology
Oncology on board, recc outpt chemoTx and radiation if plan for aggressive approach
However, currently pt preferring hospice care after GOC discussion
will consult hospice
# Alcohol abuse
Drinks 2-3 beers a day, last drink 4 days TV PRODUCTION ASSISTANT (01/28/24)
Cont MSAS protocol
IV thiamine, IV folate
# Hypovolemic Hyponatremia
sodium level improved with IVF
# Chronic memory impairment
# Chronic ambulatory dysfunction
PT/OT eval
# Normocytic anemia
Hgb 10.8, MCV 85.3
# DM2
SSI
check HgbA1c
Hold Januvia, metformin at 1000 mg twice daily,
Cont reduced TV PRODUCTION ASSISTANT insulin glargine at 5 units HS (TV PRODUCTION ASSISTANT at 20 units HS)
# GERD
# Hx GI bleed
IV PPI 40 mg daily, TV PRODUCTION ASSISTANT 40 mg p.o. twice daily
# HTN benign
resume TV PRODUCTION ASSISTANT losartan/Toprol at decreased doses when able to take PO
IV Lopressor 5 mg every 6 hours as needed SBP >110
# Chronic urinary incontinence
Continue Flomax 0.4 mg every afternoon
DVT prophylaxis: Subcu Lovenox
DNR
GOC discussion with pt and separately with DIL. Current plan is to proceed with hospice.
Extensive discussion with all consultants
total time spent > 51 min
Anticipated Discharge: > 48 hours
Subjective/Interval History
-
Date of Service: February 01, 2024
Objective Data
-
Labs:
Laboratory Results
02/01/24
05:16
WBC 12.9 H
Hgb 9.7 L
Hct 29.4 L
Plt Count 160
Sodium 132 L
Potassium 3.1 L
Chloride 96 L
Carbon Dioxide 27
BUN 12
Creatinine 0.5 L
Glucose 131 H
Calcium 8.7
Total Bilirubin 0.5
AST 18
ALT 12
Alkaline Phosphatase 77
Vital Signs:
Vital Signs
Temp Pulse Resp BP Pulse Ox
36.5 C 84 20 151/69 98
02/01/24 07:18 02/01/24 07:18 02/01/24 07:18 02/01/24 05:46 02/01/24 07:18
I&O
01/31/24 02/01/24 02/02/24
06:59 06:59 06:59
Intake Total 495 / 495
Output Total 3650 / 3650
Balance -3155 / -3155
Review of Systems
-
All other systems: Reviewed and negative
Physical Exam
-
General: Well Developed, Well Nourished, No Apparent Distress, Comfortable and Conversant; Negative Respiratory Distress
HEENT: Normocephalic, Atraumatic, Nose Appears Normal and Ears Appear Normal; Negative Oxygen
Respiratory: Clear to Auscultation and Non Labored Respirations; Negative Accessory Resp Muscle Use
Cardiac: Regular Rhythm and S1/S2
GI: Soft, Nontender, Nondistended and Normal Bowel Sounds
Skin: Warm, Dry and Other (massive R neck cancer )
Neuro: Awake and Alert
Psych: Calm and Intact Judgement/Insight (somewhat)
Data Reviewed
-
CT Scan: Report Reviewed by me
Labs: Labs Reviewed by me
--- NOTE | 2024-02-01 09:29 | WOUNDNOTE ---
R JAW/NECK (with photo flash)
--- NOTE | 2024-02-01 09:30 | WOUNDNOTE ---
[facility] RN note: Patient admitted with sepsis, pneumonia. Patient's son does his wound care at home as per patient. Patient current with Chuy MARQUES.
See H&P for complete history.
PMH: stage 4 jaw and throat cancer with cancer wound for about 1 year. Was recently at [facility] 12/27-01/12/24 then discharged to [facility] then home with Chuy RN starting 01/27. Squamous cell cancer scalp and neck. ETOH
abuse, chronic ambulation dysfunction, chronic memory impairment, urinary incontinence, CAD, [place], cardiac stent 1993, HTN, DM, anemia.
Wound Location and type/assessment: Patient admitted with: full thickness cancer wound to muscle, dark pink with scattered yellow tissue along with scattered purple areas. Moderate ss drainage. No odor. +Local erythema. Patient denies pain. Skin on
sacrum intact. Heels blanchable mild red and intact. Oncology, ID and GI on consult.
Appetite: currently NPO. NGT capped currently.
Pressure redistribution devices in place: [employer] Accumax. Patient transferred from chair to bed with walker and supervision.
Plan: R jaw dressing changed. Heels off bed with pillow. Air chair cushion given.
Will confirm orders with hospitalist and update nurse.
Updated care plan and will follow as needed.
[2024-02-01] MEDS: KCL 270 MEQ IV (10:00)
[2024-02-01] MEDS: COZAAR PO (10:01)
[2024-02-01] MEDS: MAGNESIUM SULFATE 50 IV (10:01)
--- NOTE | 2024-02-01 10:37 | CON.CAR ---
Addendum entered and electronically signed by Arturo Ko MD 02/01/24 12:04:
I saw and examined the patient.
The DATA OFFICER's note was reviewed and I agree with the note.
Comment: 73 y/o male with stage IV cancer jaw and throat per chart, DM2, CAD with history of remote stenting (1993 per chart), hypertension, anemia, daily ETOH, memory impairment, GIB, and hyperlipidemia who had NSVT noted on telemetry. He is here
vomiting and ?PNA being treated with NGT and NPO. He is a poor historian. On exam, large exophytic mass on the right jaw line. RRR no m/r/g his lungs were CTA anteriorly (I couldn't reposition) no le edema. Alot of his medical history remains
unknown. WCT seen and c/w NSVT. He has electrolyte imbalance which may explain the finding. He is being repleted. Will update Echo. LBBB noted unclear chronicity, may be some underlying CMY. Will add a small dose of IV bb and monitor response. He
is not a an aspirin despite report of CAD but also may be an GIB/anemia issue. Will hold for now.
d/w Dr Olmstead.
Original Note:
Consultation
Consultation Request
Date/Time Consultation Requested: 02/01/24 0921
Date/Time Consultation Performed: 02/01/24 1020
Requesting Provider: Dr. Olmstead
Performing Provider: Gertrude CAMPOS for Dr. Ko
Reason for Consultation: NSVT
Medical History
-
Chief Complaint: vomiting
History of Present Illness:
73 y/o male with stage IV cancer jaw and throat per chart, DM2, CAD with history of remote stenting (1993 per chart), hypertension, anemia, daily ETOH, memory impairment, GIB, and hyperlipidemia who is here for vomiting. He is admitted and felt to
have aspiration PNA. He is a poor historian and history obtained from chart. He is being treated with ABX. He is NPO and NGT is in place. He is being treated with Abx. We are consulted since when he worked with PT today, he was seen to have run of
WCT on the monitor. He also was orthostatic. He is getting fluids. Electrolytes are also being replaced. He denies any CP or palps. He has a cough. Of note, he was recently hospitalized at an OSH, then sent to rehab, but details of these stays are
unknown.
Past Medical History
Past Medical History: CAD, Cancer, HTN, Hypercholesterolemia, NIDDM and Other (as above)
Social History
Tobacco: Non-Smoker
Alcohol: Daily (3-4 beers per day, non recently per patient)
Family History
Family History: Reviewed & Not Pertinent
Allergies / Home Medications
Allergy/AdvReac Type Severity Reaction Status Date / Time
gallopamil Allergy Unknown Unknown Verified 01/31/24 09:29
lisinopril Allergy Unknown Unknown Verified 01/31/24 09:29
�Medication �Instructions �Recorded �Confirmed �Type
atorvastatin 80 mg tablet 80 mg PO QPM High Cholesterol 01/31/24 01/31/24 History
cholecalciferol (vitamin D3) 25 25 mcg PO DAILY Supplement 01/31/24 01/31/24 History
mcg (1,000 unit) tablet
folic acid 1 mg tablet 1 mg PO DAILY Supplement 01/31/24 01/31/24 History
insulin glargine-yfgn 100 unit/mL 20 unit SC HS Diabetes 01/31/24 01/31/24 History
subcutaneous solution
losartan 25 mg tablet 25 mg PO DAILY Blood Pressure 01/31/24 01/31/24 History
metformin 500 mg tablet 1,000 mg PO BID Diabetes 01/31/24 01/31/24 History
metoprolol succinate 100 mg 100 mg PO DAILY Blood Pressure 01/31/24 01/31/24 History
tablet,extended release 24 hr
multivitamin-iron sulfate 15 1 tab PO DAILY Supplement 01/31/24 01/31/24 History
mg-folic acid 400 mcg tablet
(Tab-A-Kaya Multivitamin w-iron)
niacin 100 mg tablet 100 mg PO DAILY Supplement 01/31/24 01/31/24 History
ondansetron 4 mg disintegrating 4 mg PO Q8H PRN nausea/vomiting 01/31/24 01/31/24 History
tablet
pantoprazole 40 mg tablet,delayed 40 mg PO BID Gastrointestinal Issue 01/31/24 01/31/24 History
release
sitagliptin phosphate 100 mg 100 mg PO DAILY Diabetes 01/31/24 01/31/24 History
tablet (Januvia)
tamsulosin 0.4 mg capsule 0.4 mg PO QPM Urinary Issue 01/31/24 01/31/24 History
thiamine HCl (vitamin B1) 100 mg 100 mg PO DAILY Supplement 01/31/24 01/31/24 History
tablet
Review of Systems
-
Unable to obtain full review of systems at this time due to: Other (patient is poor historian)
History Source: Patient and Other (chart)
All other systems: Negative unless noted
Respiratory: Cough
Abdomen/GI: Vomiting
Neurological: Other (light-headed with walking)
Physical Exam
Vital Signs
Temp Pulse Resp BP Pulse Ox
97.7 F 84 20 151/69 98
02/01/24 07:18 02/01/24 07:18 02/01/24 07:18 02/01/24 05:46 02/01/24 07:18
Lab Results
02/01/24 05:16
02/01/24 05:16
Physical Exam
General: No Apparent Distress
HEENT: Normocephalic and Anicteric
Respiratory: Other (diminished to b/l bases)
Cardiac: Regular Rhythm
Musculoskeletal: No Edema
Skin: Warm, Dry and Other (wound to right side of face, packed)
Neuro: Awake, Alert, Oriented (self only) and Other (follows commands)
Psych: Calm
Impression / Plan
-
PNA, suspected aspiration:
-on ABX
-infectious disease is consulted
Vomiting:
-gastric outlet obstruction versus gastroparesis
-GI following- considering EGD at some point after some improvement medically
-NGT to intermittent suction
NSVT:
-has LBBB
-patient with short runs NSVT
-replace potassium and magnesium
-check echo
-add back low dose metoprolol IV for now since NPO
Stage IV jaw/throat cancer:
-oncology following
Orthostasis:
-SBP 150's down to 120's
-getting IVF, working with PT
-monitor
Hx CAD:
-details unknown
-no CP
-if does have stent history as stated in chart, should be on ASA if no contraindication, but not enough known about history at the time of my assessment
HTN:
-normally on losartan and metoprolol
-currently NPO
-some orthostasis as above
-add low dose metoprolol (IV) and monitor
Data Reviewed
-
EKG: Tracing Personally Visualized and interpreted (SR with PVC's, 81 BPM)
CT Scan: Report Reviewed by me (abdomen/pelvis CT: Moderate fluid distention of the stomach, which may be related to gastroparesis or gastric outlet obstruction. Mild infectious or inflammatory tree-in-bud nodules in the lingula and left lower lobe.)
Labs: Labs Reviewed by me
[2024-02-01 10:56] LABS: Troponin I 0.024 ng/ml
[2024-02-01 11:05] LABS: Magnesium 1.5 mg/dl (1.6-2.3)
--- NOTE | 2024-02-01 11:21 | CON.ID ---
Consultation
-
Date/Time Consultation Requested: 01/31/24 15:30
Date/Time Consultation Performed: 02/01/24 11:21
Requesting Provider: Dr Olmstead
Performing Provider: Dr Lawrence
Reason for Consultation: sepsis 12/02 pna concern aspiration
Chief Complaint / Past History
Chief Complaint
intractable vomiting
History of Present Illness
Mr Perez is a 73 year old male with history of stage IV CA jaw/throat cancer had biopsy on 01/06/2024 [facility], SCC of scalp/neck, history of EtOH abuse. Also 28 lb weight loss. discharged to rehab. Reports a chronic wound over the
right mandible for 1 year. Then over the last 3-4 days developed intractable vomiting. Last BM was Tuesday 4 days ago; described as pudding consistency. Of note he did not recall being told he had cancer.
Since arrival here he has been afebrile, bp stable to hypertensive, wbc initially 21 now 12.9, hgb 9.7, plt 160, L shift was present on arrival now resolved, eos initially not present now resolved, cr 0.5, lactic acid 1.1, t bili 0.5, ast 18, alt
18, alk phos 77, procal 0.13, UA neg, CXR today: Tree-in-bud nodules in the left lung base on the prior CT are less conspicuous by radiograph, CT a/p with IV contrast: gastroparesis or gastric outlet obstruction, Mild infectious or inflammatory
tree-in-bud nodules in the lingula and left lower lobe. Seen by Dr Knott Oncology and GI re possible gastric outlet obsruction vs gastroparesis.
Past History
Additional Past Medical History:
stage IV CA jaw/throat had biopsy on 01/06/2024 [facility]
Squamous cell CA scalp and neck
GI bleed
Alcohol abuse
Chronic memory impairment per patient
urinary incontinence,
CAD
HTN
HLD
DM2
anemia
Chronic memory impairment per patient
Chronic ambulatory dysfunction
Additional Past Surgical History:
Tonsillectomy
Cardiac stent x 1 [facility] 1993
Biopsy right jaw neck wound January 06, 2024 [facility]
Allergy History:
gallopamil Allergy (Unknown, Verified 01/31/24 09:29)
Unknown
lisinopril Allergy (Unknown, Verified 01/31/24 09:29)
Unknown
Medications Reviewed: Yes
Social History
Tobacco: Non-Smoker
Alcohol: Daily (last drink 4 days ago, 8 beers a day)
Drug: None
Family History
Family History: Not Pertinent
Review of Systems
Review of Systems
General: Negative Fever or Chills
All systems: All other systems were reviewed and were negative
Vital Signs
Temp Pulse Resp BP Pulse Ox
97.7 F 84 20 151/69 98
02/01/24 07:18 02/01/24 07:18 02/01/24 07:18 02/01/24 05:46 02/01/24 07:18
Physical Exam
Physical Exam
Constitutional: No Acute Distress and Chronically Ill
Head: Other (large ulcer about the size of a grapefruit, some clear liqiuid drainage, foul smell, no visible bone)
Cardiovascular: Regular Rate and S1/S2; Negative Murmur or Rub
Pulmonary: Clear and Symmetric; Negative Wheezes, Rales or Rhonchi
Gastrointestinal: Soft, Non Tender, Non Distended and Normal Bowel Sounds
Skin: Warm and Dry; Negative Rash or Jaundice
Lab / Diagnostic Study Results
02/01/24 05:16
02/01/24 05:16
Abs Immat Gran (auto) 0.2 10^3/uL (0-0.05) H 02/01/24 05:16
Absolute Neuts (auto) 8.8 10^3/uL (1.4-6.5) H 02/01/24 05:16
Absolute Lymphs (auto) 1.5 10^3/uL (1.2-3.4) 02/01/24 05:16
Absolute Monos (auto) 2.3 10^3/uL (0.1-0.6) H 02/01/24 05:16
Absolute Basos (auto) 0.1 10^3/uL (0-0.2) 02/01/24 05:16
Immature Gran % 1.4 % (0-0.5) H 02/01/24 05:16
Neutrophils % 68.0 % (42.2-75.2) 02/01/24 05:16
Lymphocytes % 11.2 % (20.5-51.1) L 02/01/24 05:16
Monocytes % 17.9 % (1.7-9.3) H 02/01/24 05:16
Eosinophils % 1.1 % (0-6) 02/01/24 05:16
Basophils % 0.4 % (0-2) 02/01/24 05:16
PT 14.9 Sec (11.4-14.6) H 01/31/24 18:15
INR 1.18 01/31/24 18:15
Lactic Acid 1.1 mmol/L (0.7-2.0) 01/31/24 14:31
Procalcitonin 0.13 ng/ml (0.0-0.25) 01/31/24 18:15
Microbiology Results
Micro:
01/31/24 10:10 Wound Culture - Preliminary
Face - Right Gram Stain - Preliminary
01/31/24 09:49 Blood Culture - Preliminary
Blood/Venous No Growth in 24 hours- Final report to follow
01/31/24 09:49 Blood Culture - Preliminary
Blood/Venous No Growth in 24 hours- Final report to follow
02/01/24 09:06 Nasal Screen MRSA (PCR) - Pending
Nose
Assessment / Plan
Mild Aspiration Pneumonitis
- CXR already improving with minimal findings, leukocytosis markedly improved and likely reactive, on room air, procalcitonin negative
- pneumonia takes days to develop, unlikely to have pneumonia at this time, most likely aspiration pneumonitis. most patients with aspiration pneumonitis do not require antibiotic therapy - stopped antibiotics
- follow clinically
Stage IV Head and Neck Cancer
Chronic EtOH Abuse - ongoing
Dementia with secondary noncompliance
- no probe to bone in the wound
- hospice a real consideration, particularly if patient generally resistant to health care
--- NOTE | 2024-02-01 11:36 | CM ---
CM reviewed pt with Dr Olmstead and Dr Knott- no set dc at this time
Lengthy dc planning discussion with LEONID
Pt was living alone in mobile home in [place]- LEONID notes he was unsafe due to cognition
Was sent to [facility] from [facility] from 01/12-01/26- dc to son and DIL's home with [facility]
GOC discussed in detailed along with ST rehab placement vs LT SNF placement vs home with VN vs home with hospice
LEONID notes she does not work due to disability and is home during the day and able to care for pt as needed
Notes pt likely is over-resourced for [place] and will not pay for any care or LT SNF out of pocket
Family would like pt to come home with continued service through [facility] so patient can start his outpt cancer testing and treatments soon
Family does not want to delay treatment for rehab placement
Pt's only DME is [facility] at home, will likely need WW on dc
Referral back to [facility] requested for community home assistance and services
[facility] info also provided to LEONID for HCBS
LEONID notes PCP is in [place] and difficult to get to
Resident clinic info provided to LEONID
Per [facility] request, referral to Palliative as plan DIE CUTTER OPERATOR was to establish palliative care for pt
Updates to attending, GI, and onc
Physicians will continue to address medical tx plan and GOC
Discharge Disposition- SNF refusal, home with [facility] and palliative care, likely need new WW
--- NOTE | 2024-02-01 11:39 | W.PN.GI.CBS2 ---
Addendum entered and electronically signed by Debi Bucio MD 02/01/24 18:05:
I saw and examined the patient.
The MONEY MANAGER or PA's note was reviewed and I agree with the note.
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
Appreciate hospitalist assistance pt now hospice.
Donan fixed NGT and more output as below.
Plan for EGD tomorrow with Dr. Pritchard with possible enteral stent - r/a/b explained to pt including not limited to bleeding, peforation, infection.
Donna called family to update them as well.
D/w hospitalist and Dr. Pritchard.
Addendum entered and electronically signed by ANDRES Lovett 02/01/24 17:13:
NGT with minimal drainage over course of day. Tube was replaced last PM. Tube removed and replaced to 55 cm with several 100ml drainage on replacement. Pt feeling improved.
Original Note:
Today's Communication / Plan
-
etiology of nausea/vomiting with concern for gastric outlet obstruction vs other -- in setting of stage IV CA
cont NGT for decompression with less drainage overnight
Na and WBC's improved
discussed with Dr. Olmstead-- she will reach out to family later today to review overall plan to decide on EGD for tomorrow
appreciate oncology input
cards following with NSVT
requested again record from [facility] as only labs sent-- no further records to review
cont NPO monitor outputs
Assessment / Plan
-
Pt is a 73yo with hx CAD, HTN, hypercholesterolemia, NIDDM with recent admission to [facility] followed by [facility] for stage IV CA of Jaw and throat and recent right neck biospy. He now presents with
nausea/vomiting over weekend with intolerance of medications. On admission CT A/p with Moderate fluid distention of the stomach, which may be related to gastroparesis or gastric outlet obstruction. Some apparent narrowing at the level of the
gastric outlet, although could be related to peristalsis and considered nonspecific by CT. Also noted mild infectious vs inflammatory nodule in lungs. Labs notable for WBC 21,800, Na 128. In ER NGT was placed with 3200ml removal on placement of
brownish fluid. pt also with 28 lbs wt loss and diarrhea. Hx colonoscopy years ago with hx polyps. Did not recall EGD. Some limited hx poor historian in exam.
-nausea/vomiting with concern for gastric outlet obstruction on imaging
-concern for aspiration on admission
-NSVT
-hx squamous cell CA left neck and recent bx right neck ulcerated lesion with concern for mandible mass
-hyponatremia
-leukocytosis
-elevated lactate now improved
-hx ETOH use
other medical problems:
-CAD
-HTN
-hypercholesterolemia
-NIDDM
-LBBB
-BPH
-cognitive impairment
PLAN:
etiology of nausea/vomiting with concern for gastric outlet obstruction vs other -- in setting of stage IV CA
cont NGT for decompression with less drainage overnight
Na and WBC's improved
discussed with Dr. Olmstead-- she will reach out to family later today to review overall plan to decide on EGD for tomorrow
appreciate oncology input
cards following with NSVT
requested again record from [facility] as only labs sent-- no further records to review
cont NPO monitor outputs
Subjective
Subjective
Date of Service: February 01, 2024
NPO, NGT in place, 150ml out from NGT overnight
Objective
Data Reviewed
Laboratory Data:
Laboratory Results
02/01/24 05:16
02/01/24 05:16
Laboratory Results
PT 14.9 Sec (11.4-14.6) H 01/31/24 18:15
INR 1.18 01/31/24 18:15
APTT 27.5 Sec (23.4-35.0) 01/31/24 18:15
Phosphorus 3.2 mg/dl (2.5-4.5) 01/31/24 18:15
Magnesium 1.5 mg/dl (1.6-2.3) L 02/01/24 05:16
Total Bilirubin 0.5 mg/dl (0.2-1.3) 02/01/24 05:16
AST 18 U/L (17-59) 02/01/24 05:16
ALT 12 U/L (0-50) 02/01/24 05:16
Alkaline Phosphatase 77 U/L (38-126) 02/01/24 05:16
Lipase 57 U/L (23-300) 01/31/24 09:49
Vital Signs and I&O:
Vital Signs
Temp Pulse Resp BP Pulse Ox
97.7 F 84 20 151/69 98
02/01/24 07:18 02/01/24 07:18 02/01/24 07:18 02/01/24 05:46 02/01/24 07:18
I&O
01/31/24 02/01/24 02/02/24
06:59 06:59 06:59
Intake Total 495 / 495
Output Total 3800 / 3800
Balance -3305 / -3305
Physical Exam
Physical Exam
HEENT: Anicteric and Moist mucous membranes
Cardiology: Normal Sinus Rhythm
Pulmonary: Other (decreased bases )
GI: Soft, Non Distended, Non Tender and Other (NGT with clear drainage )
Extremities: No Edema and Other (left neck large ulcerated wound)
Neuro: Other (sleepy but arousable )
[2024-02-01 11:47] LABS: Glucose - Point of Care 117 mg/dl (70-99)
[2024-02-01] MEDS: LOPRESSOR 2.5 MG IV ×3 (13:02→23:43)
--- NOTE | 2024-02-01 15:29 | CM ---
CM reviewed chart and pt with numerous physicians
Physicians addressing GOC and pt requesting hospice
Lengthy dc planning discussion with LEONID
Pt was living alone in mobile home in [place]- numerous hospitalizations and rehabs at [facility] and recently [facility]
Was sent to [facility] SNF from [facility] from 01/12-01/26- dc to son and DIL's home with Chuy
DIL notes as she is disabled at home and unable to care for pt around the clock, pt will need to go to a SNF if he desires hospice
He is only able to return to their home if pt is stronger and able to participate in his care
DIL requesting GIP admission if possible
If not, requesting cost effective SNF be arranged- notes concern that pt will refuse associated costs
Requested referrals to [facility] and [facility]
Bedside meeting with pt to confirm hospice as plan
He is concerned about associated costs
Broad net of SNF referrals made via [facility] and all pending
Referral made to Hospice for GIP assessment
Discharge Disposition- SNF with hospice
[2024-02-01 16:01] LABS: Troponin I 0.021 ng/ml
[2024-02-01] MEDS: LIPITOR PO (16:20)
--- NOTE | 2024-02-01 17:26 | W.PN.UPDATE ---
Update Note
Progress Note Update
spoke with son and updated on plan for EGD in am with possible stent.
[2024-02-01 18:04] LABS: Glucose - Point of Care 124 mg/dl (70-99)
--- NOTE | 2024-02-01 18:05 | W.PN.UPDATE ---
Update Note
Progress Note Update
billing purposes
[2024-02-01 21:12] LABS: Glucose - Point of Care 114 mg/dl (70-99)
[2024-02-01] MEDS: LANTUS SC (21:53)
[2024-02-01 22:17] LABS: Troponin I 0.022 ng/ml
[2024-02-02] VITALS (13 sets, daily range): BP systolic 18–168; BP diastolic 71–90; BMI 32.3
[2024-02-02 04:22] LABS: % Basophils 0.4 % (0-2); % Eosinophils 2.2 % (0-6); % Immature Granulocytes 3.4 % (0-0.5); % Lymphocytes 18.9 % (20.5-51.1); % Monocytes 17.2 % (1.7-9.3); % Neutrophils 57.9 % (42.2-75.2); Absolute Eosinophils 0.2 10^3/uL (0-0.7); Absolute Immature Granulocytes 0.3 10^3/uL (0-0.05); Absolute Lymphocytes 1.5 10^3/uL (1.2-3.4); Absolute Monocytes 1.4 10^3/uL (0.1-0.6); Absolute Neutrophils 4.6 10^3/uL (1.4-6.5); Hematocrit 29.4 % (39.0-52.0); Hemoglobin 9.8 g/dL (13.0-18.0); Mean Corp Hgb Conc. 33.3 g/dL (33.0-37.0); Mean Corpuscular Hgb 29.1 pg (27.0-31.0); Mean Corpuscular Volume 87.2 fL (80.0-94.0); Mean Platelet Volume 10.5 fL (7.4-10.4); Nucleated Red Blood Cells % 0 % (-); Platelet Count 167 10^3/uL (130-400); Red Blood Cell Count 3.37 10^6/uL (4.70-6.10); Red Cell Dist. Width 15.7 % (11.5-14.5)
[2024-02-02 04:42] LABS: Glucose - Point of Care 111 mg/dl (70-99)
[2024-02-02 04:43] LABS: Troponin I 0.032 ng/ml
[2024-02-02 04:48] LABS: ALT (SGPT) 11 U/L (0-50); AST (SGOT) 18 U/L (17-59); Albumin 2.4 g/dl (3.5-5.0); Alkaline Phosphatase 70 U/L (38-126); Blood Urea Nitrogen 8 mg/dl (9-20); Calcium 8.7 mg/dl (8.4-10.2); Carbon Dioxide 24 mmol/L (22-30); Chloride 100 mmol/L (98-107); Estimated Creatinine Clearance > 125 ml/min; Glucose 107 mg/dl (70-99); Sodium 134 mmol/L (135-145); Total Bilirubin 0.5 mg/dl (0.2-1.3); Total Protein 4.5 g/dl (6.3-8.2); eGFR > 60.00
[2024-02-02] MEDS: LOPRESSOR 2.5 MG IV ×3 (05:13→19:58)
[2024-02-02 07:55] LABS: Hematocrit 28.9 % (39.0-52.0); Hemoglobin 9.3 g/dL (13.0-18.0); Mean Corp Hgb Conc. 32.2 g/dL (33.0-37.0); Mean Corpuscular Hgb 29.1 pg (27.0-31.0); Mean Corpuscular Volume 90.3 fL (80.0-94.0); Mean Platelet Volume 10.8 fL (7.4-10.4); Platelet Count 154 10^3/uL (130-400); Red Cell Dist. Width 15.6 % (11.5-14.5); White Blood Cell Count 7.3 10^3/uL (4.8-10.8)
[2024-02-02 08:28] LABS: Blood Urea Nitrogen 7 mg/dl (9-20); Calcium 8.7 mg/dl (8.4-10.2); Carbon Dioxide 26 mmol/L (22-30); Chloride 101 mmol/L (98-107); Estimated Creatinine Clearance > 125 ml/min; Glucose 109 mg/dl (70-99); Magnesium 1.7 mg/dl (1.6-2.3); Potassium 3.2 mmol/L (3.5-5.1); Sodium 134 mmol/L (135-145); eGFR > 60.00
[2024-02-02] MEDS: THIAMINE INJECTION 200 MG IV (09:07)
[2024-02-02] MEDS: PROTONIX IV 40 MG IV (09:07)
[2024-02-02] MEDS: COZAAR 25 MG PO (09:08)
[2024-02-02] MEDS: FOLVITE 1 MG PO (09:08)
--- NOTE | 2024-02-02 09:24 | PN.CDI ---
CDI
- -
CDI:
Physician Documentation Request
Admit Date: 01/31/24 15:36
Dear Doctor Ishan,
Clinical Indicators:
Patient admitted with aspiration pneumonitis; PMH includes Stage IV head and neck cancer.
01/29 H & P, ' Patient reports he has had vomiting since December with weight loss of 28 pounds.'
01/31 note/assessment:-'With weight loss of > 7.5% in three months and < 75% estimated needs > 1 month pt
meets AND/ASPEN criteria for moderate protein calorie malnutrition.'
Based on the information, which of the following most accurately represents the patient's nutritional status?
Moderate Protein Calorie Malnutrition
Mild Protein Calorie Malnutrition
Other (please specify)
Geneva Criteria ([facility] Hospitalist 2017)
2 or more criteria must be present for either
non severe or severe malnutrition
Note that the criteria differs related to the
presence of an acute or chronic illness
Acute Illness Chronic Illness
Energy Intake Non Severe: <75% for >7 days Non Severe: <75% for >1 month
Severe: <50% for >5 days Severe: <75% for >1 month
Weight Loss Non Severe: 1-2% over 1 week Non Severe: 5% over 1 month
5% over 1 month 7.5% over 3 months
7.5% over 3 months 10% over 6 months
1 year N/A 20% over 1 year
Severe: >2% over 1 week Severe: >5% over 1 month
>5% over 1 month >7.5% over 3 months
>7.5% over 3 months >10% over 6 months
1 year N/A >20% over 1 year
Body Fat Non Severe: Mild Decrease Non Severe: Mild Loss
Severe: Moderate Decrease Severe: Severe Loss
Muscle Mass Non Severe: Mild Decrease Non Severe: Mild Loss
Severe: Moderate Decrease Severe: Severe Loss
Fluid Accumulation Non Severe: Mild Accumulation Non Severe: Mild Accumulation
Severe: Moderate to severe Severe: Moderate to severe
accumulation accumulation
Reduced Forest [employer] Strength Non Severe: N/A Non Severe: N/A
Severe: Measurably reduced Severe: Measurably reduced
Additional criteria that can be used to Determine if Mild or Moderate Malnutrition (Merck Manual 2018)
Mild Moderate Severe
Albumin gm/dl <3.0 gm/dl <2.5 gm/dl <2.0 gm/dl
Pre Albumin mg/dl <15 gm/dl <10 mg/dl <5.0 mg/dl
BMI <18.5 <17 <16
Use of terms such as suspected, likely, concern for, or probable (associated with a specific diagnosis that is being evaluated, monitored, or treated as if it exists) are acceptable and can be coded in the inpatient setting, when documented at the
time of discharge.
Thank you,
MO Raza RN
CDI Specialist
available via tiger text
Please use your independent medical judgment in providing your response.
[2024-02-02] MEDS: KCL 270 MEQ IV (10:08)
--- NOTE | 2024-02-02 11:10 | W.PN.HOSP.TC ---
Addendum entered and electronically signed by Peggy Olmstead MD 02/02/24 16:23:
# Moderate Protein Calorie Malnutrition
Original Note:
Today's Communication/Plan
-
see A/P
Assessment / Plan
Assessment / Plan
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
anemia; p/w nausea and intractable vomiting.
He was recently admitted to [facility] in Dec which he has no recollection of.
ER physician spoke with patient's blduwmrp-rx-wlw Leatha who stated that pt has stage IV cancer of the jaw and throat and was admitted to [facility] in [place] and [facility]
He was set up with [facility], whom likely called the ambulance today.
CXR: Tree-in-bud nodules in the left lung base
CT abdomen pelvis with IV contrast:
1. Mild infectious tree-in-bud nodules in the lingula and left lower lobe
2. Moderate fluid distention of the stomach may be related to gastroparesis or gastric outlet obstruction
A/P:
# Aspiration Pneumonitis; aspiration pneumonia ruled out by ID
WBC 21.8 on admission -> 7.3 today
Blood cultures neg, Procal 0.13, UA not indicative for UTI
Off Abx per ID
# Intractable vomiting likely secondary to gastroparesis/gastric outlet obstruction
NG tube placed in the ED
Cont NPO with IVF support
IV PPI
IV Zofran as needed
GI on board, plan for EGD with possible palliative stenting if obstruction noted
# non-sustained VT noted on tele, asymptomatic, ?related to hypoK and hypoMag
# Hypokalemia
# Hypomagnesemia
# h/o CAD/cardiac stent x 1 [facility] 1993
replete lyes
no need for additional work up given transitioning to hospice care
# stage IV H&N cancer- large right mandibular mass that was ignored > 1-year
# Hx squamous cell CA scalp/neck
Had biopsy on 01/06/2024 at [facility]
Oncology on board, recc outpt chemoTx and radiation if plan for aggressive approach
However, after GOC discussion, pt is preferring hospice care
hospice CS
# Alcohol abuse
Drinks 2-3 beers a day, last drink 4 days [employer] (01/28/24)
Cont MSAS protocol
IV thiamine, IV folate
# Hypovolemic Hyponatremia
sodium level improved with IVF
# Chronic memory impairment
# Chronic ambulatory dysfunction
PT/OT eval
# Normocytic anemia
Hgb 10.8, MCV 85.3
# DM2
SSI
check HgbA1c
Hold Januvia, metformin at 1000 mg twice daily,
Cont reduced [employer] insulin glargine at 5 units HS ([employer] at 20 units HS)
# GERD
# Hx GI bleed
IV PPI 40 mg daily, [employer] 40 mg p.o. twice daily
# HTN benign
resume [employer] losartan/Toprol at decreased doses when able to take PO
IV Lopressor 5 mg every 6 hours as needed SBP >110
# Chronic urinary incontinence
Continue Flomax 0.4 mg every afternoon
DVT prophylaxis: Subcu Lovenox
DNR
Dispo: GOC discussion with pt and family. Plan is to proceed with hospice.
Anticipated Discharge: 24 - 48 hours
Subjective/Interval History
-
Date of Service: February 02, 2024
Objective Data
-
Labs:
Laboratory Results
02/02/24 02/02/24
04:05 07:32
WBC 8.0 7.3
Hgb 9.8 L 9.3 L
Hct 29.4 L 28.9 L
Plt Count 167 154
Sodium 134 L 134 L
Potassium 3.0 L 3.2 L
Chloride 100 101
Carbon Dioxide 24 26
BUN 8 L 7 L
Creatinine 0.5 L 0.5 L
Glucose 107 H 109 H
Calcium 8.7 8.7
Total Bilirubin 0.5
AST 18
ALT 11
Alkaline Phosphatase 70
Vital Signs:
Vital Signs
Temp Pulse Resp BP Pulse Ox
36.7 C 79 18 164/77 96
02/02/24 08:24 02/02/24 09:08 02/02/24 08:24 02/02/24 09:08 02/02/24 08:24
I&O
02/01/24 02/02/24 02/03/24
06:59 06:59 06:59
Intake Total 495 / 495
Output Total 3800 / 3800 1300 / 1300 475 / 475
Balance -3305 / -3305 -1300 / -1300 -475 / -475
Review of Systems
-
All other systems: Reviewed and negative
Physical Exam
-
General: Well Developed, Well Nourished, No Apparent Distress, Comfortable and Conversant; Negative Respiratory Distress
HEENT: Normocephalic, Atraumatic, Nose Appears Normal and Ears Appear Normal; Negative Oxygen
Respiratory: Clear to Auscultation and Non Labored Respirations; Negative Accessory Resp Muscle Use
Cardiac: Regular Rhythm and S1/S2
GI: Soft, Nontender, Nondistended and Normal Bowel Sounds
Skin: Warm, Dry and Other (massive R neck ulcerative cancer )
Neuro: Awake and Alert
Psych: Calm and Intact Judgement/Insight (somewhat)
Data Reviewed
-
CT Scan: Report Reviewed by me
Labs: Labs Reviewed by me
[2024-02-02] MEDS: MAGNESIUM SULFATE 50 IV (11:31)
[2024-02-02 12:09] LABS: Glucose - Point of Care 110 mg/dl (70-99)
--- NOTE | 2024-02-02 16:42 | CM ---
NG remains.
spoke with patient is is confused to some extent. Explained PT recommended SNF. He said he would rather go home.
He said CM could speak with his family .
Spoke with Lance on phone . Reviewed PT evals. and which SNF accepted him.
Lance has being researching SNF.Told Lance he would need to speak with dad to accept SNF.
Will continue on dc planning.
PLAN On going dc planning.
--- NOTE | 2024-02-02 17:24 | W.PN.ID1 ---
Date of Service
Date of Service: February 02, 2024
Today's Communication
- will start unasyn for now given developing cellulitic changes around the wound
Assessment / Plan
Cellulitis adjacent to the Chronic Wound
Stage IV Head and Neck Cancer
Chronic EtOH Abuse - ongoing
Dementia with secondary noncompliance
- continue local care
- will start unasyn for now given developing cellulitic changes around the wound
- hospice a real consideration, particularly if patient generally resistant to health care
Chief Complaint
-: Other (wound infection)
Subjective / Review of Systems
afebrile
bp stable
without leukocytosis
cr stable
wound culture polymicrobial
skin surrounding the wound developing cellulitis
Vital Signs / Physical Exam
Vital Signs
Vital Signs
Temp Pulse Resp BP Pulse Ox
97.9 F 74 18 143/78 96
02/02/24 15:28 02/02/24 15:28 02/02/24 15:28 02/02/24 15:28 02/02/24 15:28
Physical Exam
Constitutional: No Acute Distress
Cardiovascular: Regular Rate and S1/S2; Negative Murmur or Rub
Pulmonary: Clear and Symmetric; Negative Wheezes or Rales
Gastrointestinal: Soft, Non Tender, Non Distended and Normal Bowel Sounds
Skin: Warm, Dry and Other (skin surrounding the wound developing cellulitis- erythema, warmth, tenderness); Negative Rash or Jaundice
Objective Data
Lab Data
Lab Results
02/02/24 07:32
02/02/24 07:32
PT 14.9 Sec (11.4-14.6) H 01/31/24 18:15
INR 1.18 01/31/24 18:15
APTT 27.5 Sec (23.4-35.0) 01/31/24 18:15
Estimated Creat Clear > 125 ml/min 02/02/24 07:32
Lactic Acid 1.1 mmol/L (0.7-2.0) 01/31/24 14:31
Total Bilirubin 0.5 mg/dl (0.2-1.3) 02/02/24 04:05
GGT 18 U/L (15-73) 01/31/24 18:15
AST 18 U/L (17-59) 02/02/24 04:05
ALT 11 U/L (0-50) 02/02/24 04:05
Alkaline Phosphatase 70 U/L (38-126) 02/02/24 04:05
Most recent labs reviewed.
Micro Results:
01/31/24 10:10 Wound Culture - Preliminary
Face - Right Gram negative bacilli
Staphylococcus aureus
Diptheroids
Gram Stain - Preliminary
01/31/24 09:49 Blood Culture - Preliminary
Blood/Venous No Growth in 48 hours- Final report to follow
01/31/24 09:49 Blood Culture - Preliminary
Blood/Venous No Growth in 48 hours- Final report to follow
02/01/24 09:06 Nasal Screen MRSA (PCR) - Final
Nose MRSA not detected - performed by PCR methodology.
[2024-02-02 18:27] LABS: Glucose - Point of Care 121 mg/dl (70-99)
[2024-02-02] MEDS: THIAMINE INJECTION IV (19:48)
[2024-02-02] MEDS: UNASYN IV (19:52)
[2024-02-02] MEDS: LIPITOR PO (19:55)
[2024-02-02] MEDS: NSS 1000 IV (20:03)
[2024-02-03 00:10] LABS: Glucose - Point of Care 161 mg/dl (70-99)
[2024-02-03] MEDS: THIAMINE INJECTION 200 MG IV ×2 (00:11→10:17)
[2024-02-03] MEDS: LOPRESSOR 2.5 MG IV ×4 (00:12→18:05)
[2024-02-03] MEDS: LANTUS 0.0500000000000000028 UNITS SC (00:13)
[2024-02-03] MEDS: UNASYN IV ×3 (00:15→11:40)
[2024-02-03 02:48] VITALS: BP 140/68
[2024-02-03 05:56] VITALS: BMI 32.5
[2024-02-03 06:14] LABS: Glucose - Point of Care 176 mg/dl (70-99)
--- NOTE | 2024-02-03 06:50 | W.PN.GI.CBS2 ---
Today's Communication / Plan
-
See assessment and plan for details.
Assessment / Plan
-
1. 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 At this point we will start clear liquids, and if tolerates is okay to DC from GI standpoint with liquid diet with
supplementation such as Ensure, can slowly advance consistency as tolerated though discussed avoiding bulky foods and large portions.
Subjective
Subjective
Date of Service: February 03, 2024
Patient feeling okay, no pain or vomiting overnight, no fever or chills. EGD note reported, stent successfully placed with significant duodenal stenosis.
Objective
Data Reviewed
Laboratory Data:
Laboratory Results
PT 14.9 Sec (11.4-14.6) H 01/31/24 18:15
INR 1.18 01/31/24 18:15
APTT 27.5 Sec (23.4-35.0) 01/31/24 18:15
Phosphorus 3.2 mg/dl (2.5-4.5) 01/31/24 18:15
Magnesium 1.7 mg/dl (1.6-2.3) 02/02/24 07:32
Total Bilirubin 0.5 mg/dl (0.2-1.3) 02/02/24 04:05
AST 18 U/L (17-59) 02/02/24 04:05
ALT 11 U/L (0-50) 02/02/24 04:05
Alkaline Phosphatase 70 U/L (38-126) 02/02/24 04:05
Lipase 57 U/L (23-300) 01/31/24 09:49
Vital Signs and I&O:
Vital Signs
Temp Pulse Resp BP Pulse Ox
98.0 F 71 18 153/76 96
02/03/24 02:48 02/03/24 05:30 02/03/24 02:48 02/03/24 05:30 02/03/24 05:36
I&O
02/01/24 02/02/24 02/03/24
06:59 06:59 06:59
Intake Total 495 / 495 2240 / 2240
Output Total 3800 / 3800 1300 / 1300 1375 / 1375
Balance -3305 / -3305 -1300 / -1300 865 / 865
Physical Exam
Physical Exam
General: NAD
Abdomen: normal bowel sounds, soft, no tenderness, no masses or bruits, no ascites
[2024-02-03 07:55] VITALS: BP 170/83
--- NOTE | 2024-02-03 08:14 | W.PN.UPDATE ---
Update Note
Progress Note Update
reviewed stent diet with patient and staff. If tolerating clears ok for full liquid dinner
[2024-02-03] MEDS: COZAAR 25 MG PO (10:14)
[2024-02-03] MEDS: FOLVITE 1 MG PO (10:14)
[2024-02-03] MEDS: PROTONIX IV 40 MG IV (10:15)
[2024-02-03] MEDS: NSS (PRESERVATIVE FREE) 10 ML IV (10:20)
[2024-02-03] MEDS: HEPARIN 5000 UNITS SC (10:24)
[2024-02-03 11:17] LABS: ALT (SGPT) 14 U/L (0-50); AST (SGOT) 19 U/L (17-59); Alkaline Phosphatase 77 U/L (38-126); Blood Urea Nitrogen 11 mg/dl (9-20); Carbon Dioxide 22 mmol/L (22-30); Chloride 100 mmol/L (98-107); Estimated Creatinine Clearance > 125 ml/min; Glucose 193 mg/dl (70-99); Potassium 3.9 mmol/L (3.5-5.1); Sodium 136 mmol/L (135-145); Total Bilirubin 0.6 mg/dl (0.2-1.3); Total Protein 5.4 g/dl (6.3-8.2); eGFR > 60.00
--- NOTE | 2024-02-03 11:22 | W.PN.HOSP.TC ---
Addendum entered and electronically signed by Peggy Olmstead MD 02/03/24 16:04:
Addendum to below, patient was started with IV antibiotic by ID for developing cellulitis around his neck mass. Antibiotic will NOT be continued given patient will be transition to hospice
Total DC time 40 minutes
Original Note:
Today's Communication/Plan
-
see A/P
Assessment / Plan
Assessment / Plan
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
anemia; p/w nausea and intractable vomiting.
He was recently admitted to [facility] in Dec which he has no recollection of.
ER physician spoke with patient's gfdbpheh-wa-vkk Leatha who stated that pt has stage IV cancer of the jaw and throat and was admitted to [facility] in [place] and [facility]
He was set up with [facility] care, whom likely called the ambulance today.
CXR: Tree-in-bud nodules in the left lung base
CT abdomen pelvis with IV contrast:
1. Mild infectious tree-in-bud nodules in the lingula and left lower lobe
2. Moderate fluid distention of the stomach may be related to gastroparesis or gastric outlet obstruction
A/P:
# Aspiration Pneumonitis; aspiration pneumonia ruled out by ID
WBC 21.8 on admission -> 7.3
Blood cultures neg, Procal 0.13, UA not indicative for UTI
Off Abx per ID
# Intractable vomiting likely secondary to gastroparesis/gastric outlet obstruction
off NGT
s/p EGD 02/01, noted Gastric outlet obstruction secondary to severe duodenal stenosis, stent placed
cont clear liquids, and advance to full liquid with ensure supplement
Appreciate GI
# non-sustained VT noted on tele, asymptomatic, ?related to hypoK and hypoMag
# Hypokalemia
# Hypomagnesemia
# h/o CAD/cardiac stent x 1 [facility] 1993
repleted lyes
no need for additional work up given transitioning to hospice care
# stage IV H&N cancer- large right mandibular mass that was ignored > 1-year
# Hx squamous cell CA scalp/neck
Had biopsy on 01/06/2024 at [facility]
Oncology on board, recc outpt chemoTx and radiation if plan for aggressive approach
However, after GOC discussion, pt is preferring hospice care
# Alcohol abuse
Drinks 2-3 beers a day, last drink 4 days [employer] (01/28/24)
Cont MSAS protocol
IV thiamine, IV folate
# Hypovolemic Hyponatremia
sodium level improved with IVF
# Chronic memory impairment
# Chronic ambulatory dysfunction
# Normocytic anemia
Hgb 10.8, MCV 85.3
# DM2
SSI
Hold Januvia, metformin at 1000 mg twice daily,
Cont reduced [employer] insulin glargine at 5 units HS ([employer] at 20 units HS)
# GERD
# Hx GI bleed
IV PPI 40 mg daily, [employer] 40 mg p.o. twice daily
# HTN benign
resume [employer] losartan/Toprol at decreased doses when able to take PO
IV Lopressor 5 mg every 6 hours as needed SBP >110
# Chronic urinary incontinence
Continue Flomax 0.4 mg every afternoon
DVT prophylaxis: Subcu Lovenox
DNR
Dispo: GOC discussion with pt and family. Plan is to proceed with hospice at facility. Family cannot take care of pt at home
Extensive coordination with DIL and CM with regard to dispo plan.
total time spent 51 min
Anticipated Discharge: Today
Subjective/Interval History
-
Date of Service: February 03, 2024
Objective Data
-
Labs:
Laboratory Results
02/03/24
09:39
WBC Pending
Hgb Pending
Hct Pending
Plt Count Pending
Sodium 136
Potassium 3.9
Chloride 100
Carbon Dioxide 22
BUN 11
Creatinine 0.5 L
Glucose 193 H
Calcium 9.0
Total Bilirubin 0.6
AST 19
ALT 14
Alkaline Phosphatase 77
Vital Signs:
Vital Signs
Temp Pulse Resp BP Pulse Ox
36.3 C 70 14 170/83 98
02/03/24 07:55 02/03/24 07:55 02/03/24 07:55 02/03/24 07:55 02/03/24 07:55
I&O
02/02/24 02/03/24 02/04/24
06:59 06:59 06:59
Intake Total 2240 / 2240
Output Total 1300 / 1300 1375 / 1375
Balance -1300 / -1300 865 / 865
Review of Systems
-
All other systems: Reviewed and negative
Physical Exam
-
General: Well Developed, Well Nourished, No Apparent Distress, Comfortable, Conversant and Appears Chronically Ill; Negative Respiratory Distress
HEENT: Normocephalic, Atraumatic, Nose Appears Normal and Ears Appear Normal; Negative Oxygen
Respiratory: Clear to Auscultation and Non Labored Respirations; Negative Accessory Resp Muscle Use
Cardiac: Regular Rhythm and S1/S2
GI: Soft, Nontender, Nondistended and Normal Bowel Sounds
Skin: Warm, Dry and Other (massive R neck ulcerative cancer )
Neuro: Awake and Alert
Psych: Calm and Intact Judgement/Insight (somewhat)
Data Reviewed
-
CT Scan: Report Reviewed by me
Labs: Labs Reviewed by me
[2024-02-03 11:50] LABS: Glucose - Point of Care 223 mg/dl (70-99)
[2024-02-03 12:39] VITALS: BP 157/81
--- NOTE | 2024-02-03 13:33 | W.PN.ID1 ---
Date of Service
Date of Service: February 03, 2024
Today's Communication
- for dc on hospice
- will stop antibiotics
ID service will no longer actively follow this patient please recall for further questions
Assessment / Plan
Cellulitis adjacent to the Chronic Wound
Stage IV Head and Neck Cancer
Chronic EtOH Abuse - ongoing
Dementia with secondary noncompliance
- for dc on hospice
- will stop antibiotics
ID service will no longer actively follow this patient please recall for further questions
Chief Complaint
-: Other (wound infection)
Subjective / Review of Systems
afebrile
bp stable
leukocytosis resolved, cr stable
wound cultures polymicrobial as expected
for dc on hospice
Vital Signs / Physical Exam
Vital Signs
Vital Signs
Temp Pulse Resp BP Pulse Ox
97.8 F 84 16 157/81 94
02/03/24 12:39 02/03/24 12:39 02/03/24 12:39 02/03/24 12:39 02/03/24 12:39
Physical Exam
Constitutional: No Acute Distress
Cardiovascular: Regular Rate and S1/S2; Negative Murmur or Rub
Pulmonary: Clear and Symmetric; Negative Wheezes or Rales
Gastrointestinal: Soft, Non Tender, Non Distended and Normal Bowel Sounds
Skin: Warm and Dry; Negative Rash or Jaundice
Wound: Other (dressing clean, dry, intact)
Objective Data
Lab Data
Lab Results
02/03/24 09:39
PT 14.9 Sec (11.4-14.6) H 01/31/24 18:15
INR 1.18 01/31/24 18:15
APTT 27.5 Sec (23.4-35.0) 01/31/24 18:15
Estimated Creat Clear > 125 ml/min 02/03/24 09:39
Lactic Acid 1.1 mmol/L (0.7-2.0) 01/31/24 14:31
Total Bilirubin 0.6 mg/dl (0.2-1.3) 02/03/24 09:39
GGT 18 U/L (15-73) 01/31/24 18:15
AST 19 U/L (17-59) 02/03/24 09:39
ALT 14 U/L (0-50) 02/03/24 09:39
Alkaline Phosphatase 77 U/L (38-126) 02/03/24 09:39
Most recent labs reviewed.
Micro Results:
01/31/24 09:49 Blood Culture - Preliminary
Blood/Venous No Growth in 72 hours- Final report to follow
01/31/24 09:49 Blood Culture - Preliminary
Blood/Venous No Growth in 72 hours- Final report to follow
01/31/24 10:10 Wound Culture - Final
Face - Right Pseudomonas aeruginosa
Klebsiella pneumoniae
S aureus-Methicillin Sensitive
Diptheroids
Gram Stain - Final
02/01/24 09:06 Nasal Screen MRSA (PCR) - Final
Nose MRSA not detected - performed by PCR methodology.
Care Review
Plan reviewed with: Physician (Dr Olmstead )
--- NOTE | 2024-02-03 13:56 | HOSPNOTE ---
Phone call was placed, after Hospice referral was received ,to this patients DIL and son to discuss Hospice services. No answer. Return phone number was given. No return call received.
[2024-02-03 14:05] LABS: % Basophils 0.3 % (0-2); % Immature Granulocytes 4.3 % (0-0.5); % Lymphocytes 12.9 % (20.5-51.1); % Monocytes 6.8 % (1.7-9.3); % Neutrophils 75.7 % (42.2-75.2); Absolute Immature Granulocytes 0.5 10^3/uL (0-0.05); Absolute Lymphocytes 1.4 10^3/uL (1.2-3.4); Absolute Monocytes 0.8 10^3/uL (0.1-0.6); Absolute Neutrophils 8.4 10^3/uL (1.4-6.5); Hematocrit 34.1 % (39.0-52.0); Hemoglobin 10.8 g/dL (13.0-18.0); Mean Corp Hgb Conc. 31.7 g/dL (33.0-37.0); Mean Corpuscular Hgb 29.2 pg (27.0-31.0); Mean Corpuscular Volume 92.2 fL (80.0-94.0); Mean Platelet Volume 11.7 fL (7.4-10.4); Nucleated Red Blood Cells % 0 % (-); Platelet Count 215 10^3/uL (130-400); Red Cell Dist. Width 16.1 % (11.5-14.5); White Blood Cell Count 11.1 10^3/uL (4.8-10.8)
--- NOTE | 2024-02-03 15:07 | CM ---
Addendum entered by Lenore Lassiter 02/03/24 15:40:
ambulance transport scheduled for 7:30pm.
Original Note:
call from [facility] that bed is available for patient today.spoke with..dr murillo who has ordered a hospice consult since she feels he is hospice appropiate.spoke with domo peralta who states she and her cannot take care of patient
anymore, and she is okay with patient going to hospice.met with patient who is also willing to go to hospice at [facility],cost is $275/day and domo said that cost is okay and family is willing to pay cost.[facility] uses [facility]
hospice.called and spoke with joseline and faxed clinicals to hospice agency.since he will be going to hospice at [facility] they do not need an authorization per harry,. on cribrittag and his to visit patient around 4pm.transport scheduled for
47:30 pm and both harry with [facility] and joseline at [facility] okay with that time.patient signed imm letter.dr murillo signefdout of hospital dnr form.phone number to call report is [phone] and fax number is [phone].
--- NOTE | 2024-02-03 15:29 | PTCARENOTE ---
Report called to [facility] at [facility]. Facility is aware that transport time is 1930. Reviewed all medications and medications that are due at [facility]. Discharge instructions updated and copied for facility.
[2024-02-03 15:55] VITALS: BP 146/69
--- NOTE | 2024-02-03 15:58 | W.DCSUMMARY ---
Discharge Summary
Discharge Data
Date of Admission: 01/31/24
Date of Discharge: 02/03/24
-
Pending Results: No
Hospital Course
Principal Diagnosis:
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
Non-sustained ventricular tachycardia noted on telemetry, asymptomatic, unclear cause but may be related to hypokalemia and hypomagnesemia.
Chronic Diagnoses:�
Alcohol abuse
Chronic memory impairment
Chronic ambulatory dysfunction
Insulin-dependent diabetes
Gastroesophageal reflux disease
Hypertension
Chronic urinary incontinence
history of squamous cell cancer scalp/neck
History of coronary artery disease status post cardiac stent
Consultations:�
Infectious disease
Oncology
Cardiology
Gastroenterology
Procedures:�
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
Clinical course:�
This is a 73-year-old male with past medical history as stated above, who presented with nausea and intractable vomiting.
Problem 1:
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
This was associated with Hypovolemic Hyponatremia, Hypokalemia and Hypomagnesemia.
His electrolytes were corrected.
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
He can continue with full liquid diet and Ensure supplement going forward.
Of note, his intractable nausea vomiting also caused aspiration pneumonitis. Aspiration pneumonia was ruled out by ID.
Problem 2:
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
Following extensive discussion, the patient and his family agreed to proceed with hospice at a facility.
While in the hospital, he did receive IV antibiotic for the surrounding cellulitis, but antibiotic was not continued following discharge given he would be transitioned to hospice care.
Problem 3:
Non-sustained ventricular tachycardia noted on telemetry, asymptomatic, unclear cause but may be related to hypokalemia and hypomagnesemia.
Cardiology was consulted for this, but no additional workup was proceeded given patient was transitioned to hospice care.
As for the rest of his medical problems, they were stable during his hospital stay.
Discharge Plan
-
Patient Disposition: Other
Discharge Diagnosis/Procedures: Aspiration Pneumonitis; intractable vomiting secondary to gastric outlet obstruction from severe duodenal stenosis- stent placed
Condition: Critical
Diet: Other diet
Additional Diets: full liquid with ensure supplement three times a day
Activity: As tolerated
Driving Restrictions: No driving
Other Services: Hospice
Wound Care: Wound Care Instructions:
R jaw wound-clean gently with saline, apply Xeroform gauze or Vaseline gauze, cover with non woven gauze pads, change daily. Change outer dressings daily and prn drainage.
Referrals:
Serena Valenzuela MD [Family Provider] - in less than 1 week
Additional Discharge Medication Instructions: decrease Lantus from 20 units to 10 units HS
Prescriptions:
Continued
metformin 500 mg Tablet
1,000 mg PO BID
metoprolol succinate 100 mg Tablet Extended Release 24 Hr
100 mg PO DAILY
tamsulosin 0.4 mg Capsule
0.4 mg PO QPM
pantoprazole 40 mg Tablet,Delayed Release (Dr/Ec)
40 mg PO BID
losartan 25 mg Tablet
25 mg PO DAILY
ondansetron 4 mg Tablet,Disintegrating
4 mg PO Q8H PRN (Reason: nausea/vomiting)
Januvia 100 mg Tablet
100 mg PO DAILY
Changed
insulin glargine-yfgn 100 unit/mL Solution
10 unit SC HS Qty: 0 0RF
Discontinued
atorvastatin 80 mg Tablet
80 mg PO QPM
thiamine HCl (vitamin B1) 100 mg Tablet
100 mg PO DAILY
niacin 100 mg Tablet
100 mg PO DAILY
folic acid 1 mg Tablet
1 mg PO DAILY
cholecalciferol (vitamin D3) 25 mcg (1,000 unit) Tablet
25 mcg PO DAILY
Tab-A-Kaya Multivitamin w-iron 15 mg iron- 400 mcg Tablet
1 tab PO DAILY
Discharge Orders:
Discharge Patient (As Directed); Ordered 02/03/24
Ordered By: Peggy Olmstead
Discharge Date and Time
Print Language: MACEDONIAN
[2024-02-03 16:43] LABS: Glucose - Point of Care 364 mg/dl (70-99)
[2024-02-03] MEDS: LIPITOR 80 MG PO (18:05)
[2024-02-03] MEDS: MAXIPIME 2000 MG IV (18:05)
[2024-02-03] MEDS: NOVOLOG FLEXPEN-LOW RESISTANCE 5 UNITS SC (18:07)
[2024-02-03] MEDS: STERILE WATER FOR INJECTION 10 ML IV (18:08)
[2024-02-03 19:42] VITALS: BP 174/89
--- NOTE | 2024-02-03 20:03 | PTCARENOTE ---
Patient to [facility] via [facility] ambulance. Belongings from rom sent. Day shift RN called report to Francie earlier in the day.
== END 2024-02-03 20:05 | DRG 380 ==
LOC: 4 EAST ACU 15:36
PROVIDERS: Clinical Nurse Specialist Family Health; Internal Medicine Gastroenterology; Nurse Practitioner Family; Radiology Diagnostic Radiology; ADMITTING PHYSICIAN Internal Medicine; CONSULT PHYSICIAN Internal Medicine Cardiovascular Disease; CONSULT PHYSICIAN Internal Medicine Gastroenterology; EMERGENCY PHYSICIAN Emergency Medicine; FAMILY PHYSICIAN Internal Medicine Hospice and Palliative Medicine; OTHER PHYSICIAN Internal Medicine Hematology & Oncology; OTHER PHYSICIAN Student in an Organized Health Care Education/Training Program
PROC: 0D9670Z Drainage of Stomach with Drainage Device, Via Natural or Artificial Opening (ICD-10-PCS; 2024-01-31)
PROC: 0D798DZ Dilation of Duodenum with Intraluminal Device, Via Natural or Artificial Opening Endoscopic (ICD-10-PCS; 2024-02-02)
PROC: BD19ZZZ Fluoroscopy of Duodenum (ICD-10-PCS; 2024-02-03)
DX: K31.5 Obstruction of duodenum (principal); J69.0 Pneumonitis due to inhalation of food and vomit; E44.0 Moderate protein-calorie malnutrition; E87.1 Hypo-osmolality and hyponatremia; I47.20 Ventricular tachycardia, unspecified; L03.221 Cellulitis of neck; K31.1 Adult hypertrophic pyloric stenosis; Z51.5 Encounter for palliative care; K31.84 Gastroparesis; E10.43 Type 1 diabetes mellitus with diabetic autonomic (poly)neuropathy; R32 Unspecified urinary incontinence; C76.0 Malignant neoplasm of head, face and neck; I25.10 Atherosclerotic heart disease of native coronary artery without angina pectoris; F03.90 Unspecified dementia, unspecified severity, without behavioral disturbance, psychotic disturbance, mood disturbance, and anxiety; R63.4 Abnormal weight loss; I44.7 Left bundle-branch block, unspecified; F10.10 Alcohol abuse, uncomplicated; R26.2 Difficulty in walking, not elsewhere classified; R41.89 Other symptoms and signs involving cognitive functions and awareness; I10 Essential (primary) hypertension; E78.00 Pure hypercholesterolemia, unspecified; E86.1 Hypovolemia; E66.09 Other obesity due to excess calories; K21.00 Gastro-esophageal reflux disease with esophagitis, without bleeding; R91.8 Other nonspecific abnormal finding of lung field; N40.1 Benign prostatic hyperplasia with lower urinary tract symptoms; E87.6 Hypokalemia; E83.42 Hypomagnesemia; R33.8 Other retention of urine; D64.9 Anemia, unspecified; S11.8 Open wound of other specified parts of neck; X58.XXXD Exposure to other specified factors, subsequent encounter; Z66 Do not resuscitate; Z79.4 Long term (current) use of insulin; Z79.84 Long term (current) use of oral hypoglycemic drugs; I25.2 Old myocardial infarction; Z85.828 Personal history of other malignant neoplasm of skin; Z95.5 Presence of coronary angioplasty implant and graft; Z88.8 Allergy status to other drugs, medicaments and biological substances; Z68.31 Body mass index [BMI] 31.0-31.9, adult; Z87.19 Personal history of other diseases of the digestive system; Z87.891 Personal history of nicotine dependence; Z91.199 Patient's noncompliance with other medical treatment and regimen due to unspecified reason; Z68.32 Body mass index [BMI] 32.0-32.9, adult; Z92.3 Personal history of irradiation; Z92.21 Personal history of antineoplastic chemotherapy
CPT/HCPCS: 71046; 74177; 74330; 76000; 80048; 80053; 80306; 81003; 82010; 82077; 82962; 82977; 83605; 83690; 83735; 84100; 84145; 84484; 85025; 85027; 85610; 85730; 87040; 87070; 87077; 87147; 87186; 87205; 87641; 93005; 96361; 96365; 96366; 96375; 97163; 97167; 99285; C1769; C1876; Q9967